=== PATIENT | male | born 1960 | race Caucasian/White ===

== ENCOUNTER 2020-01-03 10:42 | Outpatient (REF) | payer MEDICARE, MEDICAID, SELFPAY ==
[2020-01-03 11:30] LABS: Hematocrit 39.2 % (42-52); Hemoglobin 12.7 g/dl (14.0-18.0)
[2020-01-03 11:50] LABS: Estimated Average Glucose 160 mg/dL; Hemoglobin A1c % 7.2 %
[2020-01-03 11:51] LABS: Alanine Aminotransferase 13 U/L (0-40); Albumin Level 3.7 g/dL (3.5-5.0); Alkaline Phosphatase 110 U/L (39-117); Anion Gap 12 (12-20); Aspartate Amino Transferase 11 U/L (5-37); Bilirubin Total 0.6 mg/dL (0.0-1.0); Blood Urea Nitrogen 20 mg/dL (9-16); Calcium 9.2 mg/dL (8.4-10.2); Carbon Dioxide 27 mmol/L (22-29); Chloride 104 mmol/L (96-108); Estimated Glomerular Filt Rate > 60; Glucose Fasting 113 mg/dL (60-99); Potassium 5.2 mmol/l (3.3-5.1); Sodium 138 mmol/L (135-145)
== END 2020-01-03 10:43 | disposition home or self-care (01) ==
LOC: HO.LAB 10:42
PROVIDERS: PCP Internal Medicine; Visit Provider Internal Medicine Endocrinology, Diabetes & Metabolism
DX: E11.65 Type 2 diabetes mellitus with hyperglycemia (principal)
CPT/HCPCS: 36415; 80053; 83036; 85014; 85018

== ENCOUNTER → 2020-04-10 13:51 | Outpatient (BNVA) | payer MEDICARE, MEDICAID, SELFPAY | PROVIDERS: PCP Internal Medicine; Referring Provider Internal Medicine; Visit Provider Internal Medicine Endocrinology, Diabetes & Metabolism | DX: E11.65 Type 2 diabetes mellitus with hyperglycemia (principal); E11.42 Type 2 diabetes mellitus with diabetic polyneuropathy; E11.21 Type 2 diabetes mellitus with diabetic nephropathy; Z79.4 Long term (current) use of insulin; E78.5 Hyperlipidemia, unspecified; I10 Essential (primary) hypertension; E55.9 Vitamin D deficiency, unspecified | CPT/HCPCS: 82947; 99212 ==

== ENCOUNTER 2020-04-18 10:36 | Outpatient (REF) | payer MEDICARE, MEDICAID, SELFPAY ==
[2020-04-18 14:43] LABS: Alanine Aminotransferase 12 U/L (0-40); Albumin Level 3.6 g/dL (3.5-5.0); Alkaline Phosphatase 123 U/L (39-117); Anion Gap 17 (12-20); Aspartate Amino Transferase 12 U/L (5-37); Bilirubin Total 0.3 mg/dL (0.0-1.0); Blood Urea Nitrogen 18 mg/dL (9-16); Calcium 8.5 mg/dL (8.4-10.2); Carbon Dioxide 21 mmol/L (22-29); Chloride 105 mmol/L (96-108); Cholesterol 100 mg/dL; Estimated Glomerular Filt Rate > 60; Glucose Random 148 mg/dL (60-115); HDL Cholesterol 29 mg/dL; LDL Cholesterol Calculated 55 mg/dl; Potassium 4.7 mmol/l (3.3-5.1); Sodium 138 mmol/L (135-145); Total Protein 6.8 g/dL (6.5-8.0); Triglycerides 81 mg/dL
[2020-04-18 14:53] LABS: Vitamin B12 168 pg/mL (200-900)
[2020-04-18 15:06] LABS: Creatinine Urine 233.85 mg/dL; Microalbum/Creatinine Ratio Ur 11.1 ug/mg cr
[2020-04-19 07:57] LABS: LDL Cholesterol Direct 54 mg/dL (<100)
== END 2020-04-18 10:37 | disposition home or self-care (01) ==
LOC: HO.10HDL 10:36
PROVIDERS: Visit Provider Internal Medicine Endocrinology, Diabetes & Metabolism
DX: E11.65 Type 2 diabetes mellitus with hyperglycemia (principal); E11.42 Type 2 diabetes mellitus with diabetic polyneuropathy; E55.9 Vitamin D deficiency, unspecified; Z79.4 Long term (current) use of insulin; Z79.899 Other long term (current) drug therapy
CPT/HCPCS: 36415; 80053; 80061; 82043; 82607; 83721

== ENCOUNTER 2020-06-12 08:07 | Outpatient (REF) | payer MEDICARE, MEDICAID, SELFPAY ==
--- NOTE | 2020-06-12 09:31 | MHC.AU.ANO ---
Adult Audiological Evaluation Date of Visit: 06/12/20 Reason for Appointment: Patient's family has noticed the patient appears to have been gradually developing hearing difficulty over the past several years. Has hearing been tested previously?: No Hearing Handicap Inventory: HHIE SCORE: 26 Based on HHIE score, patient has: Severe perceived hearing handicap Ear History: Recent Ear Drainage: None Reported Recent Ear Pain: None Reported Recent Ear Infections: None Reported History of Ear Wax Buildup: None Reported Previous Ear Surgery: None Reported Ear used on the phone: Right Ear History of occupational noise exposure?: No History: No Medical History: Medical History: Developmental Disorder/Delay, Diabetes, High Blood Pressure, Seizure Disorder Otoscopy: Right Ear: Tympanic membrane appeared cloudy Left Ear: Tympanic membrane appeared cloudy Tympanometry: Tympanometry performed due to: To assess integrity of the middle ear system Right Ear: Non-compliant Middle Ear System (Type B) Left Ear: Non-compliant Middle Ear System (Type B) Otoacoustic Emissions Results: Did not test due to extent of middle ear dysfunction Hearing Evaluation: Transducer(s) Used: Insert Earphones Method: Conventional Audiometry Stimuli Used: Pure Tones Right Ear: Description of Hearing: Moderate/moderately-severe sloping to severe mixed hearing loss (mostly conductive) Left Ear: Description of Hearing: Profound rising to moderate and sloping to severe mixed hearing loss (mostly conductive) Speech Recognition Threshold (SRT): Method Used: Recorded Lists Stimuli Used: Spondee Words Right Ear: 55 dBHL Left Ear: 65 dBHL Word Discrimination: Method: Recorded Lists Word Lists Used: NU-6 Right Ear: 92% at 90 dBHL Left Ear: 96% at 95 dBHL Interpretation of Results: Patient presents with flat tympanograms (non-compliant middle ear systems) and mixed hearing loss that is mostly conductive in nature, and worse in the left ear. Given his current level of hearing loss, patient likely has significant difficulty hearing and understanding speech at average conversational volumes. Recommendations: Referral to Ear, Nose, and Throat (ENT) is highly recommended to address significant asymmetrical mixed hearing loss and non-compliant middle ear systems. If the hearing loss is unable to be medically managed, a medical clearance for hearing aids would be recommended. To help support patient's hearing in the meantime: -Gain patient's full attention before talking -Talk from a close distance, and [id number] -Minimize background noise in the area when possible -Speak clearly and distinctly -A personal amplifier, such as a Pocket Talker, may help the patient get by until he is able to see ENT. These devices can often be found online (i.e. [employer] or in electronics stores. They typically consist of a pair of headphones the patient wears and a microphone that others can speak into. Personal amplifiers are not a substitute for hearing aids, but may help bridge the gap until the hearing loss can be medically addressed. Diagnosis: Primary Diagnosis: H90.6 Mixed Hearing Loss, Bilateral Services Performed: Comprehensive Audiological Evaluation (CPT 79982), Tympanometry (CPT 55027) Signature: Provider: Lynne Garza, CCC-A
== END 2020-06-12 08:08 | disposition home or self-care (01) ==
LOC: HO.SH 08:07
PROVIDERS: Visit Provider Internal Medicine
DX: H90.6 Mixed conductive and sensorineural hearing loss, bilateral (principal)
CPT/HCPCS: 92557; 92567

== ENCOUNTER → 2020-07-03 14:15 | Outpatient (BNVA) | payer MEDICARE, MEDICAID, SELFPAY | PROVIDERS: PCP Internal Medicine; Visit Provider Internal Medicine Endocrinology, Diabetes & Metabolism | DX: E11.65 Type 2 diabetes mellitus with hyperglycemia (principal); E11.42 Type 2 diabetes mellitus with diabetic polyneuropathy; E11.21 Type 2 diabetes mellitus with diabetic nephropathy; Z79.4 Long term (current) use of insulin; E78.5 Hyperlipidemia, unspecified; I10 Essential (primary) hypertension; E55.9 Vitamin D deficiency, unspecified; E53.8 Deficiency of other specified B group vitamins | CPT/HCPCS: 82947; 99212 ==

== ENCOUNTER 2021-01-23 07:50 | Outpatient (REF) | payer MEDICARE, MEDICAID, SELFPAY ==
--- NOTE | 2021-01-23 12:21 | MHC.AU.ANO ---
Adult Audiological Evaluation Date of Visit: 01/23/21 Wool Buyer Used: Not Applicable Reason for Appointment: Audiologic re-evaluation. Hoang was tested at this office 06/12/2020 and found to have an asymmetric moderate to profound mixed hearing loss, with left ear being 40 dB poorer than the right at 250-1500 Hz, and bilateral middle ear dysfunction. Medical consultation with an Firmware Software Verification Engineer (ENT) was recommended. Hoang's sister, Delia, reports they went to the ENT in October 2020 and had a very frustrating appointment. A CT scan discussed to determine if a possible reason for the asymmetry could be identified; however, the ENT office never scheduled the CT scan and did not follow-up with Hoang with no medical clearance for hearing aids being provided. Hoang and his sister are very interested in pursuing hearing aids to facilitate his communication. An audiologic re-evaluation is needed for insurance coverage of amplification since the previous hearing test is over 6 months old. Medical History: Medical History: Developmental Disorder/Delay, Diabetes, High Blood Pressure, Seizure Disorder Medication List: List not available for review today. Otoscopy: Right Ear: Dull tympanic membrane Left Ear: Dull tympanic membrane Tympanometry: Tympanometry performed due to: History of middle ear dysfunction Right Ear: Non-compliant Middle Ear System (Type B) Left Ear: Non-compliant Middle Ear System (Type B) Otoacoustic Emissions Not performed at today's visit. Hearing Evaluation: Transducer(s) Used: Insert Earphones Bone Conduction Method: Conventional Audiometry Stimuli Used: Pure Tones Right Ear: Description of Hearing: Profound mixed hearing loss at 250-1500 Hz, rising to moderate mixed loss at 1897-3722 Hz, dropping to a severe loss at 8000 Hz. Left Ear: Description of Hearing: Moderate to moderately-severe mixed hearing loss 250-6000 Hz, sloping to a severe loss at 8000 Hz. Speech Recognition Threshold (SRT): Method Used: Not performed at today's visit. Word Discrimination: Method: Recorded Lists Word Lists Used: NU-6 W- Right Ear: 92% at 90 dB HL Left Ear: 92% at 95 dB HL Most Comfortable Level (MCL): Right Ear: 90 dB HL Left Ear: 95 dB HL Comparison: Compared to the most recent evaluation: Hearing is stable. Recommendations: - As Christopher and his sister's experience with the ENT was very frustrating, medical clearance will be sent to his Primary Care Physician, Dr. Banerjee. Due to the asymmetric and mixed nature of the hearing loss, it is advised to discuss with Dr. Banerjee if further imaging study is warranted to determine a possible cause of the hearing loss. - Trial with binaural amplification is recommended. - Medical clearance from a physician is required before fitting. - Hearing Aid Fitting will be scheduled when all materials arrive. - Audiological re-evaluation in one year. Will send a reminder card. Diagnosis: Primary Diagnosis: H90.6 Mixed Hearing Loss, Bilateral Secondary Diagnosis: H69.93 Unspecified Eustachian Tube Dysfunction, Bilateral Services Performed: Comprehensive Audiological Evaluation (CPT 46176) Tympanometry (CPT 59645) Signature: Provider: Lynne Burks, CCC-A
--- NOTE | 2021-01-23 12:43 | MHC.AU.MED ---
Medical Clearance for Hearing Instrumentation Date: 01/23/21 Patient Name: Hoang Escobar Date of : 1960 Primary Care Provider: Referring Provider: Devan Banerjee MD We have seen your patient on 01/23/21 and have determined that they are a candidate for amplification (See accompanying report). Specifically, they would benefit from: Hearing aid use in both ears There is a statute that addresses Medical Evaluation Requirements prior to fitting a patient with a hearing aid. According to [place] statute 265 CMR:6.03(1), (a) General. Except as provided in 265 CMR 6.03(1)(b), a life skills trainer shall not sell a hearing aid unless the prospective user has presented to the life skills trainer a written statement signed by a licensed physician that states that the patient's hearing loss has been medically evaluated and the patient may be considered a candidate for a hearing aid. The medical evaluation must have taken place within the preceding six months. Please note: Due to the [place] Statute referenced above, we cannot accept a signature other than that of a licensed physician. ACETYLENE OPERATOR and PA signatures cannot be accepted. I am in agreement with the above recommendation. There is no medical contraindication for hearing instrumentation. Physician Signature Date Physician Name (Printed)
--- NOTE | 2021-01-23 12:52 | MHC.AU.HAS ---
Hearing Aid Evaluation Date of Visit: 01/23/21 Historical Information: Description of Hearing: Asymmetric moderate to profound low frequency mixed hearing loss with the left ear being poorer at 250-1500 Hz. Current personal amplification information, if applicable: NONE Summary: Due to the significant degree of hearing loss and middle ear dysfunction, binaural hearing aids are advised to facilitate communication. Rechargeable hearing aids are recommended to help Christopher with ease of use and care of the hearing aids. Hearing Aid Prescription: Based on the individual?s shared listening needs, communication environments, dexterity, desire for connectivity, and personal preferences, the following prescription for amplification has been made: Right ear: Steel Plate Printer: [employer] Model: Evolve AI 1600 BTE-R Battery Size: Rechargeable Color: Slate Tubin Thick Type of Mold: Ron Canal Lock Left ear: Steel Plate Printer: [employer] Model: Evolve AI 1600 BTE-R Battery Size: Rechargeable Color: Slate Tubin Thick Type of Mold: Ron Canal Lock Plan of Care: Patient wishes to purchase hearing aids as prescribed Action Taken/Action Needed: Earmold Impressions Taken Medical Clearance to be requested from PCP/ENT Hearing Instrument Fitting to be scheduled when materials arrive Primary Diagnosis: H90.6 Mixed Hearing Loss, Bilateral Secondary Diagnosis: H69.93 Unspecified Eustachian Tube Dysfunction, Bilateral Signature: Provider: Lynne Burks, [facility]
--- NOTE | 2021-04-25 10:02 | MHC.AU.MED ---
Medical Clearance for Hearing Instrumentation Date: 04/25/21 Patient Name: Hoang Escobar Date of : 1960 Primary Care Provider: Referring Provider: Devan Banerjee MD We have seen your patient on 01/23/2021 and have determined that they are a candidate for amplification (See accompanying report). Specifically, they would benefit from: Hearing aid use in both ears There is a statute that addresses Medical Evaluation Requirements prior to fitting a patient with a hearing aid. According to [place] statute 265 CMR:6.03(1), (a) General. Except as provided in 265 CMR 6.03(1)(b), a hearing therapist shall not sell a hearing aid unless the prospective user has presented to the hearing therapist a written statement signed by a licensed physician that states that the patient's hearing loss has been medically evaluated and the patient may be considered a candidate for a hearing aid. The medical evaluation must have taken place within the preceding six months. Please note: Due to the [place] Statute referenced above, we cannot accept a signature other than that of a licensed physician. BAND SCROLL SAW OPERATOR and PA signatures cannot be accepted. I am in agreement with the above recommendation. There is no medical contraindication for hearing instrumentation. Physician Signature Date Physician Name (Printed)
== END 2021-01-23 07:51 | disposition home or self-care (01) ==
LOC: HO.SH 07:50
PROVIDERS: Visit Provider Internal Medicine
DX: Z46.1 Encounter for fitting and adjustment of hearing aid (principal); H90.6 Mixed conductive and sensorineural hearing loss, bilateral
CPT/HCPCS: 92557; 92567; 92591; V5275

== ENCOUNTER 2021-02-09 09:54 | Outpatient (REF) | payer MEDICARE, MEDICAID, SELFPAY | END 2021-02-09 09:55 | disposition home or self-care (01) | LOC: HO.HAP 09:54 | PROVIDERS: Visit Provider Internal Medicine | DX: Z46.1 Encounter for fitting and adjustment of hearing aid (principal); H90.6 Mixed conductive and sensorineural hearing loss, bilateral; H69.93 Unspecified Eustachian tube disorder, bilateral | CPT/HCPCS: V5011; V5020; V5160; V5261; V5264 ==

== ENCOUNTER 2021-02-13 09:29 | Outpatient (REF) | payer MEDICARE, MEDICAID, SELFPAY | END 2021-02-13 09:30 | disposition home or self-care (01) | LOC: HO.HAP 09:29 | PROVIDERS: Visit Provider Internal Medicine | DX: Z13.89 Encounter for screening for other disorder (principal) ==

== ENCOUNTER 2021-02-19 10:00 | Outpatient (REF) | payer MEDICARE, MEDICAID, SELFPAY | END 2021-02-19 10:01 | disposition home or self-care (01) | LOC: HO.HAP 10:00 | PROVIDERS: Visit Provider Internal Medicine | DX: Z13.89 Encounter for screening for other disorder (principal) ==

== ENCOUNTER 2021-02-23 11:37 | Outpatient (REF) | payer MEDICARE, MEDICAID, SELFPAY | END 2021-02-23 11:38 | disposition home or self-care (01) | LOC: HO.HAP 11:37 | PROVIDERS: Visit Provider Internal Medicine | DX: Z13.89 Encounter for screening for other disorder (principal) ==

== ENCOUNTER 2021-04-10 07:43 | Outpatient (REF) | payer MEDICARE, MEDICAID, SELFPAY ==
[2021-04-10 10:36] LABS: Cholesterol 102 mg/dL; Creatinine Urine 256.86 mg/dL; HDL Cholesterol 30 mg/dL; LDL Cholesterol Calculated 58 mg/dl; Triglycerides 71 mg/dL
[2021-04-10 10:38] LABS: Alanine Aminotransferase 16 U/L (0-40); Albumin Level 3.6 g/dL (3.5-5.0); Alkaline Phosphatase 126 U/L (39-117); Anion Gap 12 (12-20); Aspartate Amino Transferase 11 U/L (5-37); Bilirubin Total 0.6 mg/dL (0.0-1.0); Blood Urea Nitrogen 20 mg/dL (9-16); Calcium 9.1 mg/dL (8.4-10.2); Carbon Dioxide 28 mmol/L (22-29); Chloride 106 mmol/L (96-108); Estimated Glomerular Filt Rate > 60; Glucose Fasting 140 mg/dL (60-99); Potassium 5.3 mmol/L (3.3-5.1); Sodium 141 mmol/L (135-145); Total Protein 6.7 g/dL (6.5-8.0)
[2021-04-10 10:58] LABS: Vitamin D 25-OH Total 40.2 ng/mL (>30)
[2021-04-10 10:59] LABS: Prostate Specific Antigen 0.52 ng/mL (<0.05-4.0); Reflex LDLD? No
[2021-04-10 11:04] LABS: Vitamin B12 578 pg/mL (200-900)
== END 2021-04-10 07:44 | disposition home or self-care (01) ==
LOC: HO.10HDL 07:43
PROVIDERS: Internal Medicine Endocrinology, Diabetes & Metabolism; Absent Provider Nurse Practitioner Family; Visit Provider Nurse Practitioner Gerontology
DX: Z12.5 Encounter for screening for malignant neoplasm of prostate (principal); E11.65 Type 2 diabetes mellitus with hyperglycemia; E55.9 Vitamin D deficiency, unspecified; E53.8 Deficiency of other specified B group vitamins; E11.42 Type 2 diabetes mellitus with diabetic polyneuropathy; E11.21 Type 2 diabetes mellitus with diabetic nephropathy; I10 Essential (primary) hypertension; E66.01 Morbid (severe) obesity due to excess calories; Z68.42 Body mass index [BMI] 45.0-49.9, adult; Z79.4 Long term (current) use of insulin
CPT/HCPCS: 36415; 80053; 80061; 82043; 82306; 82607; 82947; 83036; 84153; 99212

== ENCOUNTER 2021-04-11 10:06 | Outpatient (REF) | payer MEDICARE, MEDICAID, SELFPAY ==
[2021-04-11 14:21] LABS: Anion Gap 13 (12-20); Blood Urea Nitrogen 22 mg/dL (9-16); Calcium 9.1 mg/dL (8.4-10.2); Carbon Dioxide 26 mmol/L (22-29); Chloride 106 mmol/L (96-108); Estimated Glomerular Filt Rate > 60; Glucose Random 142 mg/dL (60-115); Potassium 5.2 mmol/L (3.3-5.1); Sodium 140 mmol/L (135-145)
== END 2021-04-11 10:07 | disposition home or self-care (01) ==
LOC: HO.10HDL 10:06
PROVIDERS: Visit Provider Nurse Practitioner Gerontology
DX: E11.21 Type 2 diabetes mellitus with diabetic nephropathy (principal)
CPT/HCPCS: 36415; 80048

== ENCOUNTER → 2021-04-17 13:44 | Outpatient (BNVA) | payer MEDICARE, MEDICAID, SELFPAY | PROVIDERS: PCP Internal Medicine; Visit Provider Surgery Vascular Surgery | DX: I83.12 Varicose veins of left lower extremity with inflammation (principal) | CPT/HCPCS: 99202 ==

== ENCOUNTER 2021-04-26 10:22 | Outpatient (REF) | payer MEDICARE, MEDICAID, SELFPAY ==
--- NOTE | ~2021-04-26 | US_ITS ---
EXAMINATION: US LOWER EXTREMITY VENOUS (REFLUX EXAM), BILATERAL CLINICAL INDICATION: This is a 60-year-old male with venous insufficiency and varicose veins. COMPARISON: None. TECHNIQUE: Color flow triplex imaging and compression Doppler was performed to evaluate both the deep and the superficial systems bilaterally. To evaluate the superficial system, the examination was performed in the upright position. Color-flow Doppler ultrasound and compression ultrasound were utilized. In addition, maneuvers were utilized to demonstrate reflux. FINDINGS: 1. DEEP VENOUS ULTRASOUND OF THE RIGHT LOWER EXTREMITY: Common Femoral Vein: Compressible, normal respiratory variation and augmented flow. Femoral vein: Compressible, normal color flow and augmentation. Popliteal Vein: Compressible, normal augmentation. Deep Reflux: There is no evidence of reflux in the deep system in either the common femoral vein or the popliteal vein. There is no evidence of a Degroot's cyst. 2. SUPERFICIAL ULTRASOUND WITH DOPPLER OF RIGHT LOWER EXTREMITY: GREAT SAPHENOUS VEIN: Saphenofemoral Junction: 0.8 cm Mid Thigh: 0.6 cm Above Knee: 0.6 cm Below Knee: 0.3 cm Mid Calf: 0.2 cm Ankle: 0.5 cm GSV REFLUX: No evidence of reflux. DUPLICATED GREAT SAPHENOUS VEIN: There is a 0.5 cm duplicated medial great saphenous vein without reflux. SMALL SAPHENOUS VEIN: Proximal: 0.5 cm Distal: 0.3 cm SSV REFLUX: No evidence of reflux. VEIN OF GIACOMINI: None Imaged. PERFORATORS: There is a 0.3 cm mid calf pelletising extruder operator 300 ms of reflux. VARICOSITIES: There are 0.4 cm medial thigh varicose veins without reflux. 3. DEEP VENOUS ULTRASOUND OF THE LEFT LOWER EXTREMITY: Common Femoral Vein: Compressible, normal respiratory variation and augmented flow. Femoral Vein: Compressible, normal color flow and augmentation. Popliteal Vein: Compressible, normal augmentation. Deep Reflux: There is no evidence of reflux in the deep system in either the common femoral vein or the popliteal vein. There is no evidence of a Degroot's cyst. 4. SUPERFICIAL ULTRASOUND WITH DOPPLER OF LEFT LOWER EXTREMITY: GREAT SAPHENOUS VEIN: Saphenofemoral Junction: 0.9 cm. The reflux time is 620 ms. Mid Thigh: 0.4 cm. There is no reflux. Above Knee: 0.3 cm. There is no reflux. Below Knee: 0.2 cm. The reflux time is 1948 ms. Mid Calf: 0.3 cm. There is no reflux. Ankle: 0.3 cm. There is no reflux. GSV REFLUX: There is reflux at the saphenofemoral junction. DUPLICATED GREAT SAPHENOUS VEIN: None SMALL SAPHENOUS VEIN: Proximal: 0.5 cm Distal: 0.3 cm SSV REFLUX: No evidence of reflux. VEIN OF GIACOMINI: None Imaged. PERFORATORS: There is a 0.4 cm distal calf pelletising extruder operator without reflux. VARICOSITIES: There is a 0.4 cm varicose veins in the proximal thigh without reflux. US/US venous duplex LE BI IMPRESSION: 1. There is a patent right great saphenous vein without evidence of reflux. 2. There is a patent right small saphenous vein without evidence of reflux. 3. There are thigh varicose veins measure 0.4 cm without reflux. 4. There is a patent left great saphenous vein with reflux at the saphenofemoral junction. 5. There is a patent left small saphenous vein without reflux. 6. There are patent varicose veins in the proximal thigh without reflux.
== END 2021-04-26 10:23 | disposition home or self-care (01) ==
LOC: HO.US 10:22
PROVIDERS: PCP Internal Medicine; Visit Provider Surgery Vascular Surgery
DX: I83.12 Varicose veins of left lower extremity with inflammation (principal)
CPT/HCPCS: 93970

== ENCOUNTER → 2021-05-01 14:26 | Outpatient (BNVA) | payer MEDICARE, MEDICAID, SELFPAY | PROVIDERS: PCP Internal Medicine; Visit Provider Surgery Vascular Surgery | DX: I83.12 Varicose veins of left lower extremity with inflammation (principal) | CPT/HCPCS: 99212 ==

== ENCOUNTER 2021-06-05 10:53 | Outpatient (REF) | payer SELFPAY | END 2021-06-05 10:54 | disposition home or self-care (01) | LOC: HO.HAP 10:53 | PROVIDERS: Visit Provider Internal Medicine | DX: Z13.89 Encounter for screening for other disorder (principal) ==

== ENCOUNTER 2021-06-15 10:20 | Outpatient (REF) | payer MEDICARE, MEDICAID, SELFPAY ==
--- NOTE | 2021-06-15 11:41 | MHC.AU.HFU ---
Hearing Instrument Follow-Up- Binaural Date of Visit: 06/15/21 Right Ear: Animal Keeper: Ron Model: Evolve AI 1600 BTE-R Serial Number: [id number] Repair Warranty: 04/25/2024 Loss and Damage Warranty: 04/25/2024 Battery Size: Rechargeable Color: Slate Tubing: Tube Lock Type of Mold: Ron Canal Lock Type of Wax Guard: None Dispensed By: [facility] Date of Fittin02/09/2021 Left Ear: Animal Keeper: Ron Model: Evolve AI 1600 BTE-R Serial Number: [id number] Repair Warranty: 04/25/2024 Loss and Damage Warranty: 04/25/2024 USED 06/07/2021 Battery Size: Rechargeable Color: Slate Tubing: Tube Lock Type of Mold: Ron Canal Lock Type of Wax Guard: None Dispensed By: [facility] Date of Fittin02/09/2021 Follow-Up Summary: Fir the L&D left replacement aid and earmold. Retubed the right earmold with tube lock. Performed firmware update for the right aid, left replacement aid already had the update. Programmed both aids to last settings. Recommendations:Hearing instrument follow-up or maintenance as needed. Please contact our clinic with any questions or concerns. Diagnosis Code(s): Primary Diagnosis: H90.6 Mixed Hearing Loss, Bilateral Secondary Diagnosis: H69.93 Unspecified Eustachian Tube Dysfunction, Bilateral Signature:Provider: Lynne Burks, [facility]
== END 2021-06-15 10:21 | disposition home or self-care (01) ==
LOC: HO.HAP 10:20
PROVIDERS: Visit Provider Internal Medicine
DX: Z13.89 Encounter for screening for other disorder (principal)

== ENCOUNTER → 2021-07-05 09:47 | Outpatient (BNVA) | payer MEDICARE, MEDICAID, SELFPAY | PROVIDERS: PCP Internal Medicine; Visit Provider Registered Nurse Diabetes Educator | DX: E11.21 Type 2 diabetes mellitus with diabetic nephropathy (principal); E11.42 Type 2 diabetes mellitus with diabetic polyneuropathy; Z79.4 Long term (current) use of insulin | CPT/HCPCS: 95250 ==

== ENCOUNTER 2021-07-16 10:04 | Outpatient (REF) | payer MEDICARE, MEDICAID, SELFPAY ==
[2021-07-16 11:34] LABS: Alanine Aminotransferase 23 U/L (0-40); Albumin Level 3.5 g/dL (3.5-5.0); Alkaline Phosphatase 128 U/L (39-117); Anion Gap 12 (12-20); Aspartate Amino Transferase 18 U/L (5-37); Bilirubin Total 0.5 mg/dL (0.0-1.0); Blood Urea Nitrogen 24 mg/dL (9-16); Calcium 9.3 mg/dL (8.4-10.2); Carbon Dioxide 27 mmol/L (22-29); Chloride 106 mmol/L (96-108); Estimated Glomerular Filt Rate > 60; Glucose Fasting 139 mg/dL (60-99); Potassium 4.8 mmol/L (3.3-5.1); Sodium 140 mmol/L (135-145); Total Protein 6.4 g/dL (6.5-8.0)
== END 2021-07-16 10:05 | disposition home or self-care (01) ==
LOC: HO.10HDL 10:04
PROVIDERS: Visit Provider Nurse Practitioner Gerontology
DX: E11.21 Type 2 diabetes mellitus with diabetic nephropathy (principal)
CPT/HCPCS: 36415; 80053

== ENCOUNTER → 2021-07-19 09:24 | Outpatient (BNVA) | payer MEDICARE, MEDICAID, SELFPAY | PROVIDERS: PCP Internal Medicine; Visit Provider Nurse Practitioner Gerontology | DX: E11.65 Type 2 diabetes mellitus with hyperglycemia (principal); E11.42 Type 2 diabetes mellitus with diabetic polyneuropathy; E11.21 Type 2 diabetes mellitus with diabetic nephropathy; E78.5 Hyperlipidemia, unspecified; E55.9 Vitamin D deficiency, unspecified; E53.8 Deficiency of other specified B group vitamins; E66.01 Morbid (severe) obesity due to excess calories; I10 Essential (primary) hypertension; Z79.4 Long term (current) use of insulin; Z68.42 Body mass index [BMI] 45.0-49.9, adult | CPT/HCPCS: 82947; 83036; 99212 ==

== ENCOUNTER → 2021-09-19 08:01 | Outpatient (BNVA) | payer MEDICARE, MEDICAID, SELFPAY | PROVIDERS: PCP Internal Medicine; Visit Provider Nurse Practitioner Gerontology | DX: E11.21 Type 2 diabetes mellitus with diabetic nephropathy (principal); E11.42 Type 2 diabetes mellitus with diabetic polyneuropathy; E11.65 Type 2 diabetes mellitus with hyperglycemia; E78.5 Hyperlipidemia, unspecified; E55.9 Vitamin D deficiency, unspecified; E53.8 Deficiency of other specified B group vitamins; E66.01 Morbid (severe) obesity due to excess calories; I10 Essential (primary) hypertension; Z68.42 Body mass index [BMI] 45.0-49.9, adult; Z79.4 Long term (current) use of insulin | CPT/HCPCS: 82947; Q3014 ==

== ENCOUNTER → 2021-10-18 12:49 | Outpatient (BNVA) | payer MEDICARE, MEDICAID, SELFPAY | PROVIDERS: PCP Internal Medicine; Visit Provider Registered Nurse Diabetes Educator | DX: E11.21 Type 2 diabetes mellitus with diabetic nephropathy (principal) | CPT/HCPCS: 99211 ==

== ENCOUNTER → 2021-11-01 13:23 | Outpatient (BNVA) | payer MEDICARE, MEDICAID, SELFPAY | PROVIDERS: PCP Internal Medicine; Visit Provider Registered Nurse Diabetes Educator | DX: E11.21 Type 2 diabetes mellitus with diabetic nephropathy (principal) | CPT/HCPCS: 99211 ==

== ENCOUNTER 2021-11-06 13:37 | Outpatient (REF) | payer MEDICARE, MEDICAID, SELFPAY | END 2021-11-06 13:38 | disposition home or self-care (01) | LOC: HO.HAP 13:37 | PROVIDERS: Visit Provider Internal Medicine | DX: Z46.1 Encounter for fitting and adjustment of hearing aid (principal); H90.3 Sensorineural hearing loss, bilateral | CPT/HCPCS: 92593; 92595; V5011 ==

== ENCOUNTER 2021-11-07 13:00 | Outpatient (REF) | payer MEDICARE, MEDICAID, SELFPAY | END 2021-11-07 13:01 | disposition home or self-care (01) | LOC: HO.HAP 13:00 | PROVIDERS: Visit Provider Internal Medicine | DX: Z13.89 Encounter for screening for other disorder (principal) ==

== ENCOUNTER → 2021-11-15 13:23 | Outpatient (BNVA) | payer MEDICARE, MEDICAID, SELFPAY | PROVIDERS: PCP Internal Medicine; Visit Provider Registered Nurse Diabetes Educator | DX: E11.65 Type 2 diabetes mellitus with hyperglycemia (principal); E11.42 Type 2 diabetes mellitus with diabetic polyneuropathy; E11.21 Type 2 diabetes mellitus with diabetic nephropathy; E66.09 Other obesity due to excess calories; E53.8 Deficiency of other specified B group vitamins; E55.9 Vitamin D deficiency, unspecified; Z79.4 Long term (current) use of insulin | CPT/HCPCS: 99211 ==

== ENCOUNTER 2021-11-21 14:30 | Outpatient (REF) | payer MEDICARE, MEDICAID, SELFPAY | END 2021-11-21 14:31 | disposition home or self-care (01) | LOC: HO.HAP 14:30 | PROVIDERS: Visit Provider Internal Medicine | DX: Z46.1 Encounter for fitting and adjustment of hearing aid (principal); H90.3 Sensorineural hearing loss, bilateral | CPT/HCPCS: V5264 ==

== ENCOUNTER 2021-12-18 11:31 | Outpatient (REF) | payer MEDICARE, MEDICAID, SELFPAY ==
[2021-12-18 14:04] LABS: Cholesterol 86 mg/dL; HDL Cholesterol 23 mg/dL; LDL Cholesterol Calculated 49 mg/dl; Triglycerides 73 mg/dL
[2021-12-18 14:24] LABS: Prostate Specific Antigen 0.53 ng/mL (<0.05-4.0)
[2021-12-18 14:56] LABS: Creatinine Urine 180.45 mg/dL; Microalbum/Creatinine Ratio Ur 3.3 ug/mg cr
== END 2021-12-18 11:32 | disposition home or self-care (01) ==
LOC: HO.LAB 11:31
PROVIDERS: Nurse Practitioner Family; PCP Internal Medicine; Visit Provider Internal Medicine Endocrinology, Diabetes & Metabolism
DX: Z12.5 Encounter for screening for malignant neoplasm of prostate (principal); E11.65 Type 2 diabetes mellitus with hyperglycemia
CPT/HCPCS: 36415; 80061; 82043; 84153

== ENCOUNTER → 2021-12-20 13:51 | Outpatient (BNVA) | payer MEDICARE, MEDICAID, SELFPAY | PROVIDERS: PCP Internal Medicine; Visit Provider Internal Medicine Endocrinology, Diabetes & Metabolism | DX: E11.65 Type 2 diabetes mellitus with hyperglycemia (principal) | CPT/HCPCS: 82947; 99212 ==

== ENCOUNTER 2022-04-30 14:56 | Outpatient (REF) | payer MEDICARE, MEDICAID, SELFPAY | END 2022-04-30 14:57 | disposition home or self-care (01) | LOC: HO.SH 14:56 | PROVIDERS: Visit Provider Internal Medicine | DX: H90.6 Mixed conductive and sensorineural hearing loss, bilateral (principal); H69.93 Unspecified Eustachian tube disorder, bilateral | CPT/HCPCS: 92557; 92567 ==

== ENCOUNTER 2022-07-01 10:21 | Outpatient (REF) | payer MEDICARE, MEDICAID, SELFPAY ==
[2022-07-01 13:42] LABS: MANUAL DIFF FLAG NO
[2022-07-01 13:48] LABS: Basophils Percent Auto 0.3 % (0-2); Eosinophils Absolute Auto 0.1 X10*3/uL (0.0-0.4); Eosinophils Percent Auto 1.1 % (0-4); Hematocrit 37.3 % (42.0-52.0); Hemoglobin 12.1 g/dl (14.0-18.0); Imm Gran Abs Auto 0.03 X10*3/uL (0.00-0.03); Imm Gran Pct Auto 0.3 % (0.0-0.4); Lymphocytes Absolute Auto 3.6 X10*3/uL (1.2-4.9); Lymphocytes Percent Auto 39.3 % (20-40); Mean Corpuscular HGB Conc 32.4 g/dl (31.0-36.0); Mean Corpuscular Hemoglobin 28.7 pg (27.0-33.0); Mean Corpuscular Volume 88.6 fL (80.0-98.0); Mean Platelet Volume 11.7 fL (9.4-12.4); Monocytes Absolute Auto 0.5 X10*3/uL (0.1-1.2); Monocytes Percent Auto 5.6 % (2-11); Neutrophils Absolute Auto 4.9 x10*3/uL (2.0-8.3); Neutrophils Percent Auto 53.4 % (45-73); Platelet Count 257 X10*3/uL (160-400); Red Blood Count 4.21 X10*6/uL (4.60-5.80); Red Cell Distribution Width 14.8 % (11.0-16.0); White Blood Count 9.2 X10*3/uL (4.8-10.8)
[2022-07-01 14:00] LABS: Estimated Average Glucose 134 mg/dL; Hemoglobin A1C 149.3713 umol/L; Hemoglobin A1c % 6.3 %
[2022-07-01 14:12] LABS: Alanine Aminotransferase 19 U/L (0-40); Albumin Level 3.4 g/dL (3.5-5.0); Alkaline Phosphatase 114 U/L (39-117); Anion Gap 13 (12-20); Aspartate Amino Transferase 14 U/L (5-37); Bilirubin Total 0.5 mg/dL (0.0-1.0); Blood Urea Nitrogen 24 mg/dL (9-16); Carbon Dioxide 27 mmol/L (22-29); Chloride 105 mmol/L (96-108); Cholesterol 103 mg/dL; Estimated Glomerular Filt Rate > 60; Glucose Fasting 115 mg/dL (60-99); HDL Cholesterol 29 mg/dL; LDL Cholesterol Calculated 60 mg/dl; Potassium 4.7 mmol/L (3.3-5.1); Sodium 140 mmol/L (135-145); Total Protein 6.3 g/dL (6.5-8.0); Triglycerides 72 mg/dL
[2022-07-01 14:18] LABS: Microalbum/Creatinine Ratio Ur 9.6 ug/mg cr
[2022-07-01 14:29] LABS: Thyroid Stimulating Hormone 1.43 uIU/mL (0.32-4.0)
== END 2022-07-01 10:22 | disposition home or self-care (01) ==
LOC: HO.10HDL 10:21
PROVIDERS: Visit Provider Internal Medicine
DX: Z13.0 Encounter for screening for diseases of the blood and blood-forming organs and certain disorders involving the immune mechanism (principal); E11.69 Type 2 diabetes mellitus with other specified complication; E66.01 Morbid (severe) obesity due to excess calories; E78.5 Hyperlipidemia, unspecified; I10 Essential (primary) hypertension; E03.9 Hypothyroidism, unspecified
CPT/HCPCS: 36415; 80053; 80061; 82043; 83036; 84443; 85025

== ENCOUNTER → 2022-07-05 13:52 | Outpatient (BNVA) | payer MEDICARE, MEDICAID, SELFPAY | PROVIDERS: PCP Internal Medicine; Visit Provider Internal Medicine Endocrinology, Diabetes & Metabolism | DX: E11.65 Type 2 diabetes mellitus with hyperglycemia (principal); E11.42 Type 2 diabetes mellitus with diabetic polyneuropathy; E11.21 Type 2 diabetes mellitus with diabetic nephropathy; I10 Essential (primary) hypertension; E55.9 Vitamin D deficiency, unspecified; E66.01 Morbid (severe) obesity due to excess calories; Z68.41 Body mass index [BMI] 40.0-44.9, adult; Z79.4 Long term (current) use of insulin | CPT/HCPCS: 82947; 99212 ==

== ENCOUNTER 2022-12-27 09:59 | Outpatient (REF) | payer MEDICARE, MEDICAID, SELFPAY | END 2022-12-27 10:00 | disposition home or self-care (01) | LOC: HO.HMGCLDS 09:59 | PROVIDERS: PCP Internal Medicine; Visit Provider Internal Medicine Endocrinology, Diabetes & Metabolism | DX: E11.65 Type 2 diabetes mellitus with hyperglycemia (principal) | CPT/HCPCS: 36415; 80061 ==

== ENCOUNTER 2022-12-31 13:47 | Outpatient (AMB) | payer MEDICARE, MEDICAID, SELFPAY ==
[2022-12-31 13:51] VITALS: BP 110/62; PULSE 96; BMI 42.6
--- NOTE | 2022-12-31 13:51 | MHC.OFFVIS ---
Intake Vital Signs 12/31/22 13:51 Height 5 ft 10 in Weight 296 lb 11.875 oz BMI 42.6 BP 110/62 Blood Pressure Location Lt brachial Position Sitting Pulse 96 Pulse Source Pulse Oximeter Intake Visit Reasons: f/u Type 2 DM, voicemail Intake Note: Patient present today to follow up on Type 2 Diabetes Mellitus. Patient receives DME supplies through: [facility] Last Diabetic Eye exam: 08/20/22 [facility] Last Podiatry Visit: 04/16/22 [facility] Random Glucose: 125mg/dl HgA1C: 6.8% Demand Inspector Required: No Accompanied by: Sister Allergies No Known Allergies Allergy (Verified 12/31/22 14:03) HPI HPI Comments History of Present Illness Details Patient is a 62-year-old male with DM type 2 diagnosed in his 20s who presents for management of diabetes. Past medical history: Hypertension, hyperlipidemia Developmental delay, vitamin-D deficiency, morbid obesity. He lives with sister, Delia. Micro and macrovascular complications: Nephropathy, neuropathy Peripheral vascular disease with amputations on a 2nd and 3rd right toes Diabetes medications: Tresiba 10 units . Novolog 6-8 units ac PRN Metformin 1000 mg 1 tabs twice a day, Victoza 1.8 mg daily Blood glucose monitoring: [employer] download shows he is using CGMS 70% of the time average glucose is 114 with variability of 26.0%. 95% in target range with 5% hyperglycemia and 4 % hypoglycemia Hypoglycemia: None Exercise: walks down long driveway. Sometimes goes walking dogs. Admitting Clerk - CDE education: in past Efficiency Engineer: goes to hotel maintenance technician regularly Ophthalmology evaluation: 05/2022 Laboratory Tests 04/10/21 07/16/21 09:12 10:15 Creatinine 0.95 Estimated GFR > 60 Hgb A1c (Clinic) 7.1 H 04/10/21 04/10/21 04/10/21 07:47 07:47 07:47 Potassium 5.3 H Creatinine 1.05 Estimated GFR > 60 Hgb A1c (Clinic) Triglycerides 71 Cholesterol 102 LDL Cholesterol, C alc 58 HDL Cholesterol 30 Vitamin B12 578 25-OH Vitamin D To bryson 40.2 Microalb/Creat Rat io 04/10/21 04/10/21 07:47 09:12 Potassium Creatinine Estimated GFR Hgb A1c (Clinic) 7.1 H Triglycerides Cholesterol LDL Cholesterol, C alc HDL Cholesterol Vitamin B12 25-OH Vitamin D To bryson Microalb/Creat Rat io 7.0 04/18/20 04/18/20 04/18/20 10:45 10:48 10:48 Creatinine 0.94 Estimated GFR > 60 Hgb A1c (Clinic) Triglycerides 81 Cholesterol 100 LDL Cholesterol Di rect 54 LDL Cholesterol, C alc 55 HDL Cholesterol 29 Vitamin B12 Microalb/Creat Rat io 11.1 04/18/20 07/03/20 10:48 14:40 Creatinine Estimated GFR Hgb A1c (Clinic) 7.2 H Triglycerides Cholesterol LDL Cholesterol Di rect LDL Cholesterol, C alc HDL Cholesterol Vitamin B12 168 L Microalb/Creat Rat io PFSH Medical History (Updated 01/30/22 @ 10:27 by Devan Banerjee MD) Obesity due to excess calories Screening for prostate cancer B12 deficiency Diabetes mellitus Preop exam for internal medicine Morbid obesity Vitamin D deficiency Hypertension Dyslipidemia Diabetic nephropathy associated with type 2 diabetes mellitus Diabetic polyneuropathy associated with type 2 diabetes mellitus superintendent terminal (current) use of insulin Diabetes type 2, uncontrolled Surgical History History of cataract surgery History of nasal surgery Family History Father Medical history unknown Mother Medical history unknown Sister No problems noted. Sister No problems noted. Family/Other Diabetes Social History Housing: House Alcohol intake: never Patient Tobacco Use Status: Never used Tobacco e-Cigarette/Vaping Use: Never Used Second Hand Smoke Exposure: No service: No Current occupational status: disabled Cognitive needs: No Hearing needs: Yes Vision needs: Yes Physical Exam Vital Signs: Last Vital Signs Pulse 96 12/31/22 13:51 BP 110/62 12/31/22 13:51 BMI result Body Mass Index 42.6 Absence of Cushingoid features. Absence of acromegalic features. Neck exam reveals nl size thyroid about 15 gms. No thyroid nodules palpable. No carotid bruits present. Lungs CTA. Heart S1 S2, Reg R/R. No M/R/ G. Skin exam reveals absence of vitiligo or acanthosis nigricans. Abdominal exam reveals Soft NT/ND with NA BS. No organomegaly present. Neck Other: . Extrem Other: Visual exam of foot performed. there is a right 2nd and 3rd toe amputation.No ulcerations or open lesions. No onchomycosis, no callouses.Pulses 2 + distally Sensation Decreased to monofilament exam. Vibratory sensation sensed is decreased with 128 Hz tuning fork Results Reviewed Results Reviewed: 12/31/22 14:06 Glucose, Whole Blood Routine Laboratory Last Values Glucose (Clinic) 125 mg/dL (60-115) H 12/31/22 14:06 Assessment & Plan Assessment & Plan (1) Diabetes type 2, uncontrolled: Code(s): E11.65 - Type 2 diabetes mellitus with hyperglycemia Plan: This is a 61-year-old white male with a history of type 2 diabetes being treated with metformin, Victoza and basal-bolus insulin with excellent glycemic control and known microvascular and macrovascular complications namely neuropathy, CKD and Peripheral vascular disease with amputations on a 2nd and 3rd right toes . Plan is to continue the current regimen. At this point, patient can follow up with his primary care provider return back to endocrinology should his HbA1c deteriorate Coding Level of Care Code Est Pt Level 4 (67524) Diagnoses Diabetes type 2, uncontrolled E11.65
== END 2022-12-31 14:19 | disposition home or self-care (01) ==
PROVIDERS: PCP Internal Medicine; Visit Provider Internal Medicine Endocrinology, Diabetes & Metabolism
DX: E11.69 Type 2 diabetes mellitus with other specified complication (principal); E66.01 Morbid (severe) obesity due to excess calories; E11.65 Type 2 diabetes mellitus with hyperglycemia
CPT/HCPCS: 99214

== ENCOUNTER → 2022-12-31 13:47 | Outpatient (BNVA) | payer MEDICARE, MEDICAID, SELFPAY | PROVIDERS: Visit Provider Internal Medicine Endocrinology, Diabetes & Metabolism | DX: E11.65 Type 2 diabetes mellitus with hyperglycemia (principal) | CPT/HCPCS: 82947; 83036; 99212 ==

== ENCOUNTER 2023-02-10 13:38 | Outpatient (AMB) | payer MEDICARE, MEDICAID, SELFPAY ==
[2023-02-10 13:47] VITALS: BP 110/60; PULSE 70; O2SAT 99; BMI 41.7
--- NOTE | 2023-02-10 13:47 | AM.OFFVISMDC ---
Intake Vital Signs 02/10/23 13:47 Height 5 ft 10 in Weight 291 lb BMI 41.7 BP 110/60 Blood Pressure Location Lt brachial Position Sitting Pulse 70 Pulse Source Pulse Oximeter Pulse Oximetry (%) 99 Oxygen Delivery Method Room Air Intake Visit Reasons: AWV Lumber Material Handler Required: No Accompanied by: Self / Same As Patient Allergies No Known Allergies Allergy (Verified 02/10/23 13:48) Medication List - Last Reconciled 02/11/23 by Devan Banereje MD atorvastatin 40 mg PO DAILY 90 days blood sugar diagnostic (Accu-Chek SmartView Test Strips) 3x Daily dorzolamide-timolol 22.3-6.8 mg/mL 1 drp ophthalmic (eye) BID flash glucose scanning reader (YellowPepperStyle Gabbie 2 [place]) As directed flash glucose sensor (FreeStyle Gabbie 2 Sensor kit) As directed every 2 weeks insulin aspart U-100 (Novolog FlexPen U-100 Insulin aspart) 6 - 8 units (0.06 - 0.08 mL) subcut TID 30 days insulin degludec (Tresiba FlexTouch U-200 insulin) 18 units subcut BEDTIME lancets (FreeStyle Lancets) 3 times a day liraglutide (Victoza 3-Adalid) 1.8 mg (0.3 mL) subcut Q24H 90 days lisinopril 40 mg PO DAILY metformin 1,000 mg PO BID pen needle, diabetic 4 times a day HPI AWV HPI Details DM hyperlipidemia and HTN; cognitive delay PFSH Medical History Obesity due to excess calories Screening for prostate cancer B12 deficiency Diabetes mellitus Preop exam for internal medicine Morbid obesity Vitamin D deficiency Hypertension Dyslipidemia Diabetic nephropathy associated with type 2 diabetes mellitus Diabetic polyneuropathy associated with type 2 diabetes mellitus snf (current) use of insulin Diabetes type 2, uncontrolled Surgical History History of cataract surgery History of nasal surgery Family History Father Medical history unknown Mother Medical history unknown Sister No problems noted. Sister No problems noted. Family/Other Diabetes Housing: House Alcohol intake: never Patient Tobacco Use Status: Never used Tobacco e-Cigarette/Vaping Use: Never Used Second Hand Smoke Exposure: No service: No Current occupational status: disabled Cognitive needs: No Hearing needs: Yes Vision needs: Yes Questionnaire Medicare Wellness Checkup What gender do you identify with?: male During the past 4 weeks, how much have you been bothered by emotional problems such as feeling anxious, depressed, irritable, sad or downhearted, and blue?: not at all During the past 4 weeks, has your physical & emotional health limited your social activities with family, friends, neighbors, or groups?: not at all During the past 4 weeks, how much bodily pain have you generally had?: no pain During the past 4 weeks, was someone available to help you if you needed & wanted help?: yes, as much as I wanted During the past 4 weeks, what was the hardest physical activity you could do for at least 2 minutes?: moderate Can you get to places out of walking distance without help? (For eg., can you travel alone on buses, taxis or drive your car?): Yes Can you go shopping for groceries or clothes without someone's help?: Yes Can you prepare your own meals?: No Can you do your housework without help?: Yes Because of any health problems, do you need the help of another person with your personal care needs such as eating, bathing, dressing or getting around the house?: No Can you handle your own money without help?: Yes During the past 4 weeks, how would you rate your health in general?: very good During the past 4 weeks how have things been going for you?: pretty well Are you having difficulties driving your car?: no Do you always fasten your seat belt when you are in a car?: yes, usually During past 4 weeks, have you been bothered by the following: never: Falling or dizzy when standing up, Sexual problems?, Trouble eating well?, Teeth or denture problems?, Problems using the telephone? and Tiredness or fatigue? Have you fallen 2 or more times in the past year?: No Are you afraid of falling?: No Are you a smoker?: no During the past 4 weeks, how many drinks of wine, beer, or other alcoholic beverages did you have?: no alcohol at all Do you exercise for about 20 minutes 3 or more times a week?: no, I usually do not exercise this much Have you been given information to help with the following?: yes: Hazards in your house that might hurt you? and yes: Keeping track of your medications? How often do you have trouble taking medicines the way you have been told to take them?: I always take medicine as prescribed How confident are you that you can control & manage most of your health problems?: somewhat confident What is your race?: White Mini Mental State Exam (MMSE) Orientation What is the (year) (season) (date) (day) (month)?: season Where are we (state) (county) (town or city) (hospital) (floor)?: state Registration Name of 3 unrelated objects clearly and slowly, then ask patient to repeat all 3 of them. (1st repeat determines score. Make sure they can repeat all three): object 1 Attention & Calculation (CHOOSE ONE) Spell WORLD backwards (DLROW): 0 letters Score Score: 3 Activity of Daily Living Bathing - sponge bath, tub bath or shower: receives no assistance (gets in/out by self, if usual bathing means Dressing - getting clothes from closets & drawers, including inner/outer garments & fasteners.: gets clothes & gets completely dressed without help Toileting - going to the 'toilet room' for urine/bowel elimination & cleaning self/arranging clothes: goes to toilet room, cleans self, arranges clothes without help Transfer: moves in & out of bed and chair without help (may use support object) Continence: controls urination/bowel movements completely by self Feeding: feeds self without help Total Score: 0 Information obtained from: patient Using telephone: independent Traveling: dependent Shopping: dependent Preparing meals: needs assistance Housework: needs assistance Taking medicine: needs assistance Managing money: dependent PHQ-9 Over the last 2 weeks, how often have you been bothered by any of the following problems? 1. Little interest or pleasure in doing things: not at all 2. Feeling down, depressed, or hopeless: not at all 3. Trouble falling or staying asleep, or sleeping too much: not at all 4. Feeling tired or having little energy: not at all 5. Poor appetite or overeating: not at all 6. Feeling bad about yourself - or that you are a failure or have let yourself or your family down: not at all 7. Trouble concentrating on things, such as reading the newspaper or watching television: not at all 8. Moving or speaking so slowly that other people could have noticed. Or the opposite - being so fidgety or restless that you have been moving around a lot more than usual: not at all 9. Thoughts that you would be better off or of hurting yourself in some way: not at all Total score: 0 Depression Screening Interpretation: Negative Depression Screening Done: Yes 41725 - PHQ-9 Billing: Yes Source: Developed by Drs. Fabiano Phan, Andree Virgen, Sy Liriano and colleagues, with an educational sunny from [employer]. Review of Systems Const Denies chills, Denies fatigue, Denies headache(s) and Denies weight loss Eyes Denies change in vision, Denies diplopia and Denies eye pain ENT Reports Normal hearing present, Denies vertigo, Denies dizziness, Denies headache(s) and Denies nasal discharge Card Denies chest pain, Denies rapid heart rate and Denies dyspnea on exertion Resp Denies chest congestion, Denies cough, Denies pain with cough and Denies dyspnea on exertion GI Denies abdominal pain, Denies hematochezia and Denies change in bowel habits Musc Denies myalgias, Denies arthralgias and Denies joint swelling Skin/Breast Denies lesions and Denies unusual bruising Neuro Reports Normal hearing present, Denies vertigo, Denies dizziness, Denies headache(s) and Denies focal weakness Endo Denies fatigue Physical Exam Vital Signs: Last Vital Signs Pulse 70 02/10/23 13:47 BP 110/60 02/10/23 13:47 Pulse Ox 99 02/10/23 13:47 Oxygen Delivery Method Room Air 02/10/23 13:47 BMI result Body Mass Index 41.7 Neuro Cranial nerves: Yes Normal hearing present Assessment & Plan Assessment & Plan (1) Encounter for initial annual wellness visit (AWV) in Medicare patient: Code(s): Z00.00 - Encounter for general adult medical examination without abnormal findings Plan: whisper and rhomberg tests nl (2) Type 2 diabetes mellitus with morbid obesity: Code(s): E11.69 - Type 2 diabetes mellitus with other specified complication; E66.01 - Morbid (severe) obesity due to excess calories Plan: same rx; A1C in good control (3) Hypertension: Code(s): I10 - Essential (primary) hypertension Plan: stable; same rx (4) Dyslipidemia: Code(s): E78.5 - Hyperlipidemia, unspecified Plan: stable; same rx Quality Reporting (2019) Depression/Bipolar (159/160/161/177) PHQ-9: Total score: 0 Coding Level of Care Code Medicare First (G0438) Diagnoses Encounter for initial annual wellness visit (AWV) in Medicare patient Z00.00 Type 2 diabetes mellitus with morbid obesity E11.69; E66.01 Hypertension I10 Dyslipidemia E78.5 CPT Codes Advance Care Planning - Advance Care Planning discussion: On file, no changes ([id number]) Advance Care Planning Advance Care Planning discussion: On file, no changes Forms completed: Health Care Proxy
== END 2023-02-10 14:02 | disposition home or self-care (01) ==
PROVIDERS: PCP Internal Medicine; Visit Provider Internal Medicine
DX: Z00.00 Encounter for general adult medical examination without abnormal findings (principal); E11.69 Type 2 diabetes mellitus with other specified complication; E66.01 Morbid (severe) obesity due to excess calories; Z68.41 Body mass index [BMI] 40.0-44.9, adult; I10 Essential (primary) hypertension; E78.5 Hyperlipidemia, unspecified
CPT/HCPCS: 1123F; G0438; G0439

== ENCOUNTER 2023-06-10 15:35 | Outpatient (REF) | payer MEDICARE, MEDICAID, SELFPAY ==
--- NOTE | 2023-06-10 16:40 | MHC.AU.HA3 ---
Hearing Instrument Follow-Up- Binaural Date of Visit: 06/10/23 Right Ear: Miles Model, Color, Serial Number: [id number] [employer] Repair Warranty: 04/25/2024 [employer] Loss and Damage Warranty: 04/25/2024 [facility] Service Plan: Battery Size: Rechargeable Supervisor Wet Room/Slim Tube: Earmold/Dome/CShell/SlimTip:Ron Canal Lock [id number] remake warranty 02/11/2022 Type of Wax Guard: None Dispensed By: [facility] Date of Fittin02/09/2021 Left Ear: Miles, Model, Color, Serial Number: [id number] [employer] Rep[employer] Warranty: 04/25/2024 [employer] Loss and Damage Warranty: 04/25/2024 USED 06/07/2021 [facility] Service Plan: Battery Size: Rechargeable Supervisor Wet Room/Slim Tube: Earmold/Dome/CShell/SlimTip: Ron Canal Lock Type of Wax Guard: None Dispensed By: [facility] Date of Fittin02/09/2021 Follow-Up Summary: Here for evaluation. Reports right aid not working at all recently, has tried cleaning at home. Cleaned and checked both hearing aids, found stiff tubes with cerumen in them. Cleaned earmolds. Replaced tonehooks. Replaced tubing. Listening check positive. Recommendations: Recommendations: Hearing instrument maintenance in 6 months, or sooner if needed. Diagnosis Code(s): Primary Diagnosis: H90.6 Mixed Hearing Loss, Bilateral Signature: Provider: Ginny Blair, [facility]
== END 2023-06-10 15:36 | disposition home or self-care (01) ==
LOC: HO.SH 15:35
PROVIDERS: PCP Internal Medicine; Visit Provider Internal Medicine
DX: Z01.118 Encounter for examination of ears and hearing with other abnormal findings (principal); H90.6 Mixed conductive and sensorineural hearing loss, bilateral; Z46.1 Encounter for fitting and adjustment of hearing aid
CPT/HCPCS: 92557; 92567; 92593; 99499

== ENCOUNTER 2023-07-22 13:16 | Outpatient (AMB) | payer MEDICARE, MEDICAID, SELFPAY ==
[2023-07-22 13:18] VITALS: BP 120/72; PULSE 72; O2SAT 98; BMI 41.6
--- NOTE | 2023-07-22 13:18 | A.OFFPC_ITS ---
Vital Signs 07/22/23 13:18 Height 5 ft 10 in Weight 290 lb BMI 41.6 BP 120/72 Blood Pressure Location Lt brachial Position Sitting Pulse 72 Pulse Source Pulse Oximeter Pulse Oximetry (%) 98 Oxygen Delivery Method Room Air Intake Visit Reasons: DMII follow up Advertising Account Representative Required: No Inside Barrel Lathe Operator: Present Accompanied by: Spouse Allergies No Known Allergies Allergy (Verified 07/22/23 13:19) Medication List - Last Reconciled 07/23/23 by Devan Banerjee MD atorvastatin 40 mg PO DAILY 90 days blood sugar diagnostic (Accu-Chek SmartView Test Strips) 3x Daily dorzolamide-timolol 22.3-6.8 mg/mL 1 drp ophthalmic (eye) BID flash glucose scanning reader (MacawStyle Gabbie 2 [place]) As directed flash glucose sensor (FreeStyle Gabbie 2 Sensor kit) As directed every 2 weeks insulin degludec (Tresiba FlexTouch U-200 insulin) 18 units subcut BEDTIME lancets (FreeStyle Lancets) 3 times a day lisinopril 40 mg PO DAILY metformin 1,000 mg PO BID pen needle, diabetic 4 times a day semaglutide (Ozempic) 1 mg (0.75 mL) subcut QWEEK Tobacco use date assessed: 07/22/23 Dental Screening Dental Screen Date: 07/22/23 Did you have a dental visit in the last 12 months?: Yes Did you have a dental problem in the last 6 months where you did not have access to dental care?: No Was dental information given to patient?: Patient has dentist HPI DMII follow up HPI Details DM in poor control; Victoza not able to obtain at previous dose and Ozempic is not working; his blood glucose drops to below 60 numerous times a week; he requires ongoing use of his CGM [facility] Medical History Obesity due to excess calories Screening for prostate cancer B12 deficiency Diabetes mellitus Preop exam for internal medicine Morbid obesity Vitamin D deficiency Hypertension Dyslipidemia Diabetic nephropathy associated with type 2 diabetes mellitus Diabetic polyneuropathy associated with type 2 diabetes mellitus senior living (current) use of insulin Diabetes type 2, uncontrolled Surgical History History of cataract surgery History of nasal surgery Family History Father Medical history unknown Mother Medical history unknown Sister No problems noted. Sister No problems noted. Family/Other Diabetes Social History Housing: House Alcohol intake: never Patient Tobacco Use Status: Never used Tobacco e-Cigarette/Vaping Use: Never Used Second Hand Smoke Exposure: No service: No Current occupational status: disabled Cognitive needs: No Hearing needs: Yes Vision needs: Yes Questionnaire PHQ-9 Over the last 2 weeks, how often have you been bothered by any of the following problems? 1. Little interest or pleasure in doing things: not at all 2. Feeling down, depressed, or hopeless: not at all 3. Trouble falling or staying asleep, or sleeping too much: not at all 4. Feeling tired or having little energy: not at all 5. Poor appetite or overeating: not at all 6. Feeling bad about yourself - or that you are a failure or have let yourself or your family down: not at all 7. Trouble concentrating on things, such as reading the newspaper or watching television: not at all 8. Moving or speaking so slowly that other people could have noticed. Or the opposite - being so fidgety or restless that you have been moving around a lot more than usual: not at all 9. Thoughts that you would be better off or of hurting yourself in some way: not at all Total score: 0 Depression Screening Interpretation: Negative Depression Screening Done: Yes 31632 - PHQ-9 Billing: Yes Source: Developed by Drs. Fabiano Phan, Andree Virgen, Sy Liriano and colleagues, with an educational sunny from [employer]. Thrive Questionnaire Date Thrive assessed: 07/22/23 I am a: Patient What is your living situation today?: I have a steady place to live Within the past 12 months, did the food you bought not last and you didn't have the money to get more?: Never true Within the past 12 months, did you worry whether your food would run out before you got money to buy more?: Never true Do you have trouble paying for medicines?: No Do you have trouble getting transportation to medical appointments?: No Do you have trouble paying your heating and electricity bill?: No Do you have trouble taking care of your child, family member or friend?: No Do you have trouble with day-to-day activities such as bathing, preparing meals, shopping, managing finances, etc.?: No Are you currently unemployed and looking for a job?: No Are you interested in more education?: No Please select the resources that you would like help with: None THRIVE Score: 0 AUDIT C Alcohol Use Questionnaire (AUDIT-C) 1. How often do you have a drink containing alcohol?: Never 2. How many drinks containing alcohol do you have on a typical day when you are drinking?: 1 or 2 (none) 3. How often do you have six or more drinks on one occasion?: Never Total Score: 0 Score Reviewed/Action Taken: No MARY-7 AMB Questionnaire MARY-7 Date MARY - 7 assessed: 07/22/23 Feeling nervous, anxious, or on edge: 0 = Not at all Not being able to stop or control worryin = Not at all Worrying too much about different things: 0 = Not at all Trouble relaxin = Not at all Being so restless that it is hard to sit still: 0 = Not at all Becoming easily annoyed or irritable: 0 = Not at all Feeling afraid as if something awful might happen: 0 = Not at all Total MARY-7 score (0-4 normal; 5-9 mild; 10-14 moderate; 15-21 severe): 0 Source: Developed by Drs. Fabiano Phan, Andree Virgen, Sy Liriano and colleagues, with an educational sunny from [employer]. Review of Systems Const Denies chills, Denies headache(s) and Denies weight loss ENT Denies headache(s) Card Denies chest pain, Denies syncope, Denies irregular heart rhythm and Denies d yspnea Resp Denies chest congestion, Denies cough and Denies dyspnea GI Denies abdominal pain, Denies change in stool character, Denies nausea and Den ies vomiting Musc Denies deformity and Denies joint swelling Neuro Denies syncope and Denies headache(s) Physical exam (Primary Care) Vital Signs: Last Vital Signs Pulse 72 07/22/23 13:18 BP 120/72 07/22/23 13:18 Pulse Ox 98 07/22/23 13:18 Oxygen Delivery Method Room Air 07/22/23 13:18 BMI result Body Mass Index 41.6 Tobacco/Smoking Status: Tobacco use Status Tobacco use date assessed 07/22/23 07/22/23 13:20 Patient Tobacco Use Status Never used Tobacco 07/22/23 13:20 e-Cigarette/Vaping Use Never Used 07/22/23 13:20 PHQ-9: PHQ-9 Score PHQ-9: Total score 0 07/22/23 13:40 Depression Screening Interpretation: Negative Thrive Assessment: Date of Thrive Assessment Date Thrive assessed 07/22/23 07/22/23 13:20 Const General: cooperative, comfortable, no acute distress and alert Neck Neck: Yes no lymphadenopathy Thyroid: Thyroid normal Resp Effort & Inspection: normal respiratory effort Auscultation: clear to auscultation bilaterally Percussion: percussion normal Cardio Jugular venous distension: no JVD Palpation: normal PMI Rate: regular rate Rhythm: regular rhythm Heart sounds: S1 normal heart sound present and S2 normal heart sound present GI Inspection: Yes normal to inspection Palpation (GI): No hepatosplenomegaly present Skin General skin exam: no rashes or lesions noted Extrem General: Yes no clubbing, cyanosis or edema Assessment and Plan Assessment & Plan (1) Type 2 diabetes mellitus with morbid obesity: Code(s): E11.69 - Type 2 diabetes mellitus with other specified complication; E66.01 - Morbid (severe) obesity due to excess calories Plan: will change to different dose and refer to endo Orders: Referrals Endocrinology Referral E11.9 - Type 2 diabetes mellitus without complications Medications: New semaglutide (Ozempic) for 4 weeks 0.25 mg (0.368 mL) subcut QWEEK 3 mL 0RF Coding Level of Care Code Est Pt Level 3 (09637) Diagnoses Type 2 diabetes mellitus with morbid obesity E11.69; E66.01
== END 2023-07-22 14:53 | disposition home or self-care (01) ==
PROVIDERS: PCP Internal Medicine; Visit Provider Internal Medicine
DX: E11.69 Type 2 diabetes mellitus with other specified complication (principal); E66.01 Morbid (severe) obesity due to excess calories; Z68.41 Body mass index [BMI] 40.0-44.9, adult
CPT/HCPCS: 99213

== ENCOUNTER 2023-07-24 13:14 | Outpatient (AMB) | payer MEDICARE, MEDICAID, SELFPAY ==
[2023-07-24 13:31] VITALS: BP 124/70; PULSE 84; O2SAT 97; BMI 43.2
--- NOTE | 2023-07-24 13:31 | A.OFFPC_ITS ---
Vital Signs 07/24/23 13:31 Height 5 ft 10 in Weight 301 lb BMI 43.2 BP 124/70 Blood Pressure Location Lt brachial Position Sitting Pulse 84 Pulse Source Pulse Oximeter Pulse Oximetry (%) 97 Oxygen Delivery Method Room Air Intake Visit Reasons: on going lethargy and not feeling well Band Splitter Required: No Single Needle Tufting Machine Operator: Not Required per policy Accompanied by: Self / Same As Patient Allergies No Known Allergies Allergy (Verified 07/24/23 13:31) Tobacco use date assessed: 07/22/23 Dental Screening Dental Screen Date: 07/22/23 HPI on going lethargy and not feeling well HPI Details unable to tolerate the ozempic; low sugars and lethargy; rx has been stopped and BS improving PFSH Medical History Obesity due to excess calories Screening for prostate cancer B12 deficiency Diabetes mellitus Preop exam for internal medicine Morbid obesity Vitamin D deficiency Hypertension Dyslipidemia Diabetic nephropathy associated with type 2 diabetes mellitus Diabetic polyneuropathy associated with type 2 diabetes mellitus intermediate (current) use of insulin Diabetes type 2, uncontrolled Surgical History History of cataract surgery History of nasal surgery Family History Father Medical history unknown Mother Medical history unknown Sister No problems noted. Sister No problems noted. Family/Other Diabetes Social History Housing: House Alcohol intake: never Patient Tobacco Use Status: Never used Tobacco e-Cigarette/Vaping Use: Never Used Second Hand Smoke Exposure: No service: No Current occupational status: disabled Cognitive needs: No Hearing needs: Yes Vision needs: Yes Questionnaire Thrive Questionnaire Date Thrive assessed: 07/22/23 MARY-7 AMB Questionnaire MARY-7 Date MRAY - 7 assessed: 07/22/23 Source: Developed by Drs. Fabiano Phan, Andree Virgen, Sy Liriano and colleagues, with an educational sunny from [employer]. Review of Systems Const Denies chills, Denies headache(s) and Denies weight loss ENT Denies headache(s) Card Denies chest pain, Denies syncope, Denies irregular heart rhythm and Denies dyspnea Resp Denies chest congestion, Denies cough and Denies dyspnea GI Denies abdominal pain, Denies change in stool character, Denies nausea and Denies vomiting Musc Denies deformity and Denies joint swelling Neuro Denies syncope and Denies headache(s) Physical exam (Primary Care) Vital Signs: Last Vital Signs Pulse 84 07/24/23 13:31 BP 124/70 07/24/23 13:31 Pulse Ox 97 07/24/23 13:31 Oxygen Delivery Method Room Air 07/24/23 13:31 BMI result Body Mass Index 43.2 Tobacco/Smoking Status: Tobacco use Status Tobacco use date assessed 07/22/23 07/24/23 13:32 Patient Tobacco Use Status Never used Tobacco 07/24/23 13:32 e-Cigarette/Vaping Use Never Used 07/24/23 13:32 Thrive Assessment: Date of Thrive Assessment Date Thrive assessed 07/22/23 07/24/23 13:32 Const General: cooperative, comfortable, no acute distress and alert Neck Neck: Yes no lymphadenopathy Thyroid: Thyroid normal Resp Effort & Inspection: normal respiratory effort Auscultation: clear to auscultation bilaterally Percussion: percussion normal Cardio Jugular venous distension: no JVD Palpation: normal PMI Rate: regular rate Rhythm: regular rhythm Heart sounds: S1 normal heart sound present and S2 normal heart sound present GI Inspection: Yes normal to inspection Palpation (GI): No hepatosplenomegaly present Skin General skin exam: no rashes or lesions noted Extrem General: Yes no clubbing, cyanosis or edema Assessment and Plan Assessment & Plan (1) Type 2 diabetes mellitus with morbid obesity: Code(s): E11.69 - Type 2 diabetes mellitus with other specified complication; E66.01 - Morbid (severe) obesity due to excess calories Plan: remain off Ozempic for now Orders: Orders Basic Metabolic Panel 07/24/23 Complete Blood Count Auto Diff 07/24/23 Z13.0 - Encounter for screening for diseases of the blood and blood-forming organs and certain disorders involving the immune mechanism CT head/brain wo IV con 07/24/23 R29.6 - Repeated falls Coding Level of Care Code Est Pt Level 3 (81853) Diagnoses Type 2 diabetes mellitus with morbid obesity E11.69; E66.01
== END 2023-07-24 15:43 | disposition home or self-care (01) ==
PROVIDERS: PCP Internal Medicine; Visit Provider Internal Medicine
DX: E11.69 Type 2 diabetes mellitus with other specified complication (principal); E66.01 Morbid (severe) obesity due to excess calories; Z68.41 Body mass index [BMI] 40.0-44.9, adult
CPT/HCPCS: 99213

== ENCOUNTER 2023-07-24 13:52 | Outpatient (REF) | payer MEDICARE, MEDICAID, SELFPAY ==
[2023-07-24 14:12] LABS: MANUAL DIFF FLAG NO
[2023-07-24 14:26] LABS: Basophils Percent Auto 0.2 % (0-2); Eosinophils Absolute Auto 0.1 X10*3/uL (0.0-0.4); Eosinophils Percent Auto 0.5 % (0-4); Hematocrit 36.2 % (42.0-52.0); Hemoglobin 11.8 g/dl (14.0-18.0); Imm Gran Abs Auto 0.11 X10*3/uL (0.00-0.03); Lymphocytes Absolute Auto 2.5 X10*3/uL (1.2-4.9); Lymphocytes Percent Auto 23.5 % (20-40); Mean Corpuscular HGB Conc 32.6 g/dl (31.0-36.0); Mean Corpuscular Hemoglobin 29.3 pg (27.0-33.0); Mean Corpuscular Volume 89.8 fL (80.0-98.0); Monocytes Absolute Auto 0.6 X10*3/uL (0.1-1.2); NRBC Pct Auto 0.2 /100WBC (0.0-0.2); Neutrophils Absolute Auto 7.4 x10*3/uL (2.0-8.3); Neutrophils Percent Auto 68.8 % (45-73); Red Blood Count 4.03 X10*6/uL (4.60-5.80); Red Cell Distribution Width 15.6 % (11.0-16.0); White Blood Count 10.7 X10*3/uL (4.8-10.8)
[2023-07-24 14:57] LABS: Anion Gap 13 (12-20); Blood Urea Nitrogen 30 mg/dL (9-16); Carbon Dioxide 24 mmol/L (22-29); Chloride 107 mmol/L (96-108); Estimated Glomerular Filt Rate > 60; Glucose Random 159 mg/dL (60-115); Potassium 5.7 mmol/L (3.3-5.1); Sodium 138 mmol/L (135-145)
[2023-07-24 15:27] LABS: Mean Platelet Volume 12.1 fL (9.4-12.4); Platelet Count 130 X10*3/uL (160-400)
== END 2023-07-24 13:53 | disposition home or self-care (01) ==
LOC: HO.LAB 13:52
PROVIDERS: PCP Internal Medicine; Visit Provider Internal Medicine
DX: Z13.0 Encounter for screening for diseases of the blood and blood-forming organs and certain disorders involving the immune mechanism (principal)
CPT/HCPCS: 36415; 80048; 85025

== ENCOUNTER 2023-09-08 12:39 | Outpatient (AMB) | payer MEDICARE, MEDICAID, SELFPAY ==
--- NOTE | 2023-09-08 13:00 | A.OFFVIS_ITS ---
Vital Signs 09/08/23 13:03 Height 5 ft 10 in Weight 298 lb 4.567 oz BMI 42.8 BP 92/58 L Blood Pressure Location Lt brachial Position Sitting Pulse 79 Pulse Source Pulse Oximeter Intake Visit Reasons: Type 2 DM/LVM Intake Note: Patient present today to follow up on Type 2 Diabetes Mellitus. Patient receives DME supplies through: [employer] Last Diabetic Eye exam: 08/28/2023 [facility] Last Podiatry Visit: Has an upcoming appointment next week Random Glucose: 192 mg/dl HgA1C: 7.5% In House Cra Required: No Accompanied by: Sister Allergies semaglutide [From Ozempic] Adverse Reaction (Unknown, Verified 09/08/23 13:10) Hypoglycemia, not feeling well Medication List - Last Reconciled 09/08/23 by Gita Villar PA-C atorvastatin 40 mg PO DAILY 90 days blood sugar diagnostic (Accu-Chek SmartView Test Strips) 3x Daily dorzolamide-timolol 22.3-6.8 mg/mL 1 drp ophthalmic (eye) BID flash glucose scanning reader (FreeStyle Gabbie 2 [place]) As directed flash glucose sensor (FreeStyle Gabbie 2 Sensor kit) As directed every 2 weeks insulin degludec (Tresiba FlexTouch U-200 insulin) 10 units (0.05 mL) subcut BEDTIME 90 days lancets (FreeStyle Lancets) 3 times a day lisinopril 40 mg PO DAILY metformin 1,000 mg PO BID pen needle, diabetic 4 times a day HPI HPI Type 2 DM/LVM: Details: Patient is a 63-year-old male with DM type 2 diagnosed in his 20s who presents for management of diabetes. He is accompanied today by his sister who is also his primary caregiver. Past medical history: Hypertension, hyperlipidemia Developmental delay, vitamin-D deficiency, morbid obesity. He lives with sister, Delia. Micro and macrovascular complications: Nephropathy, neuropathy Peripheral vascular disease with amputations on a 2nd and 3rd right toes Diabetes medications: He is currently on metformin 1000 mg twice a day. She states that in July she started to notice that his blood sugars were really dropping and that he was not feeling good with the Ozempic. She had called in and they decided to stop the Ozempic and then discontinue the Tresiba because he was still getting low blood sugar readings. She states that she was told to follow back up once the blood sugars started to increase again. He has been consistent with the metformin feeling well. His energy is almost back to baseline. They are concerned however because his blood sugars are elevated. -he did have labs completed by his PCP in July when he was feeling unwell. Potassium was elevated, mild anemia and thrombocytopenia on the CBC. Patient states he does have an appointment in September to further go over his labs with his PCP. He did not have his potassium rechecked. He is on lisinopril. He states that his blood pressures have been fine at home and at the doctor's office. He has never had issues before with his potassium and states around that time he was not feeling well from the Ozempic. He had some GI symptoms, fatigue and lack of appetite. Blood glucose monitoring: Gabbie download shows he is using CGMS 72% of the time average glucose is 197 with variability of 22.1%. 44% in target range with 42% hyperglycemia and 14% very hyperglycemic. Hypoglycemia: None -they would like to restart the Tresiba. She states that they do not want to try any other injectables. He has tried Victoza in the past and tolerated this well the insurance no longer covered. She states that Trulicity was not while the available so she did not want to start this medication and she is worried he will have the same side effects with this and mounjaro. She states that he is a night owl in eats all night and likes to stay up on Facebook. She states he was the past controlled while he was on metformin and Tresiba. Exercise: walks down long driveway. Sometimes goes walking dogs. 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 He is asymptomatic with this. States that he feels fine. He has not drank much in terms of fluids today. He is on lisinopril 40 mg. Last labs show an elevated potassium. Has not yet had this repeated. His cholesterol is controlled with atorvastatin 40 mg. 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 Sister No problems noted. Family/Other Diabetes Social History Housing: House Alcohol intake: never Patient Tobacco Use Status: Never used Tobacco e-Cigarette/Vaping Use: Never Used Second Hand Smoke Exposure: No service: No Current occupational status: disabled Cognitive needs: No Hearing needs: Yes Vision needs: Yes Physical Exam Vital Signs: Last Vital Signs Pulse 79 09/08/23 13:03 BP 92/58 L 09/08/23 13:03 BMI result Body Mass Index 42.8 Const Orientation/consciousness: patient oriented x3 Neck Neck: Yes no lymphadenopathy Thyroid: Thyroid normal Carotids: no bruits Resp Auscultation: clear to auscultation bilaterally Cardio Rate: regular rate Rhythm: regular rhythm Heart sounds: S1 normal heart sound present and S2 normal heart sound present Neuro General: patient oriented x3 Extrem Other: Skin intact. Range of motion. Right partial toe amputations noted. Onychomycosis (being treated with Podiatry) noted. Results AMB Hemoglobin A1c AMB Hemoglobin A1c 7.5 % Last Edit by TYRELL Louise on 09/08/23 13:23 Results Reviewed Results Reviewed: Laboratory Last Values Glucose (Clinic) 192 mg/dL (60-115) H 09/08/23 13:14 Laboratory Tests 07/01/22 12/27/22 12/31/22 10:29 10:10 14:19 Sodium Potassium Chloride Carbon Dioxide Creatinine Estimated GFR Random Glucose Hgb A1c (Clinic) 6.8 H Calcium Triglycerides 86 Cholesterol 117 LDL Cholesterol, Calc 70 HDL Cholesterol 30 L Urine Creatinine 197.60 Urine Microalbumin 19.0 Microalb/Creat Ratio 9.6 07/24/23 14:11 Sodium 138 Potassium 5.7 H Chloride 107 Carbon Dioxide 24 Creatinine 1.12 Estimated GFR > 60 Random Glucose 159 H Hgb A1c (Clinic) Calcium 10.0 D Triglycerides Cholesterol LDL Cholesterol, Calc HDL Cholesterol Urine Creatinine Urine Microalbumin Microalb/Creat Ratio Assessment & Plan Assessment & Plan (1) Diabetic nephropathy associated with type 2 diabetes mellitus: Code(s): E11.21 - Type 2 diabetes mellitus with diabetic nephropathy Category: Medical Plan: On ARMANDO-inhibitor. Overdue for urine. Order today. 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 (3) Diabetes type 2, uncontrolled: Code(s): E11.65 - Type 2 diabetes mellitus with hyperglycemia Category: Medical Qualifiers: Glycemic state: with hyperglycemia Qualified Code(s): E11.65 - Type 2 diabetes mellitus with hyperglycemia Plan: A1c today is 7.5. Will restart insulin as they do not want to try anything else. (4) Hypertension: Code(s): I10 - Essential (primary) hypertension Category: Medical Qualifiers: Hypertension type: primary hypertension Qualified Code(s): I10 - Essential (primary) hypertension Plan: Discussed that blood pressure is on the lower side today. Reports that hydrated. Will recheck at home. Asymptomatic. Has an upcoming appointment PCP. (5) Serum potassium elevated: Code(s): E87.5 - Hyperkalemia Category: Medical Plan: BMP ordered today. Orders: Orders Basic Metabolic Panel Today E11.21 - Type 2 diabetes mellitus with diabetic nephropathy, E11.65 - Type 2 diabetes mellitus with hyperglycemia, I10 - Essential (primary) hypertension, Z79.4 - senior living (current) use of insulin AMB Hemoglobin A1c Today E11.69 - Type 2 diabetes mellitus with other specified complication, E66.01 - Morbid (severe) obesity due to excess calories Microalbumin, Random (w Creat) Today E11.21 - Type 2 diabetes mellitus with diabetic nephropathy, E11.65 - Type 2 diabetes mellitus with hyperglycemia, I10 - Essential (primary) hypertension, Z79.4 - senior living (current) use of insulin Medications: Changed From insulin degludec (Tresiba FlexTouch U-200 insulin) 18 units subcut BEDTIME To insulin degludec (Tresiba FlexTouch U-200 insulin) 10 units (0.05 mL) subcut BEDTIME 90 days 4.5 mL 1RF Coding Level of Care Code Est Pt Level 4 (32107) Complex EM visit Add On G2211 Diagnoses Diabetic nephropathy associated with type 2 diabetes mellitus E11.21 senior living (current) use of insulin Z79.4 Uncontrolled type 2 diabetes mellitus with hyperglycemia E11.65 Glycemic state: with hyperglycemia Primary hypertension I10 Hypertension type: primary hypertension Serum potassium elevated E87.5
[2023-09-08 13:03] VITALS: BP 92/58; PULSE 79; BMI 42.8
[2023-09-08 13:18] LABS: Glucose, Whole Blood 192 mg/dL (60-115)
== END 2023-09-08 13:39 | disposition home or self-care (01) ==
PROVIDERS: PCP Internal Medicine; Visit Provider Physician Assistant
DX: E11.21 Type 2 diabetes mellitus with diabetic nephropathy (principal); Z79.4 Long term (current) use of insulin; E11.65 Type 2 diabetes mellitus with hyperglycemia; I10 Essential (primary) hypertension; E87.5 Hyperkalemia; E11.69 Type 2 diabetes mellitus with other specified complication; E66.01 Morbid (severe) obesity due to excess calories
CPT/HCPCS: 99214; G2211

== ENCOUNTER 2023-09-08 12:39 | Outpatient (REF) | payer MEDICARE, MEDICAID, SELFPAY ==
[2023-09-08 15:17] LABS: Anion Gap 16 (12-20); Blood Urea Nitrogen 21 mg/dL (9-16); Calcium 9.5 mg/dL (8.4-10.2); Carbon Dioxide 23 mmol/L (22-29); Chloride 109 mmol/L (96-108); Estimated Glomerular Filt Rate > 60; Glucose Random 203 mg/dL (60-115); Potassium 4.7 mmol/L (3.3-5.1); Sodium 143 mmol/L (135-145)
[2023-09-08 17:21] LABS: Creatinine Urine 223.32 mg/dL; Microalbum/Creatinine Ratio Ur 4.9 ug/mg cr (<30)
== END 2023-09-08 12:40 | disposition home or self-care (01) ==
LOC: HO.LAB 12:39
PROVIDERS: PCP Internal Medicine; Visit Provider Physician Assistant
DX: I10 Essential (primary) hypertension (principal); E11.69 Type 2 diabetes mellitus with other specified complication; E66.01 Morbid (severe) obesity due to excess calories; E11.21 Type 2 diabetes mellitus with diabetic nephropathy; Z79.4 Long term (current) use of insulin
CPT/HCPCS: 36415; 80048; 82043; 82570; 82947; 83036; 99212

== ENCOUNTER 2023-12-08 13:17 | Outpatient (AMB) | payer MEDICARE, MEDICAID, SELFPAY ==
--- NOTE | 2023-12-08 13:18 | A.OFFVIS_ITS ---
Vital Signs 12/08/23 13:23 Height 5 ft 10 in Weight 293 lb 3.437 oz BMI 42.1 BP 112/60 Blood Pressure Location Rt brachial Position Sitting Pulse 85 Pulse Source Pulse Oximeter Intake Visit Reasons: T2DM/LVM Intake Note: Patient presents today for a follow-up on Type 2 Diabetes Mellitus: Patient receives DME supplies through: [employer] Last Diabetic Eye exam: 08/28/2023 [facility] Last Podiatry Visit: 09/2023 Most recent HbA1c: 8.6%, 12/08/2023 Random Glucose- 209 mg/dL, Today Licensed Physical Therapy Assistant Required: No Accompanied by: Self / Same As Patient Allergies semaglutide [From Ozempic] Adverse Reaction (Unknown, Verified 09/08/23 13:10) Hypoglycemia, not feeling well Medication List - Last Reconciled 12/08/23 by Gita Villar PA-C atorvastatin 40 mg PO DAILY blood sugar diagnostic (Accu-Chek SmartView Test Strips) 3x Daily dorzolamide-timolol 22.3-6.8 mg/mL 1 drp ophthalmic (eye) BID flash glucose scanning reader (FreeStyle Gabbie 2 [place]) As directed flash glucose sensor (FreeStyle Gabbie 2 Sensor kit) As directed every 2 weeks insulin degludec (Tresiba FlexTouch U-200 insulin) 10 units (0.05 mL) subcut BEDTIME 90 days lancets (FreeStyle Lancets) 3 times a day lisinopril 40 mg PO DAILY metformin 1,000 mg PO BID pen needle, diabetic 4 times a day HPI HPI T2DM/LVM: Details: Patient is a 63-year-old male with DM type 2 diagnosed in his 20s who presents for management of diabetes. He is accompanied today by his sister who is also his primary caregiver. Past medical history: Hypertension, hyperlipidemia Developmental delay, vitamin -D deficiency, morbid obesity. He lives with sister, Delia. Endo: DM-his A1c is 8.5. His last A1c was 7.5. He is currently on metformin 1000 mg twice a day and Tresiba 10 units at bedtime. -he did not tolerate Ozempic, Victoza was no longer covered by insurance and Trulicity was frequently out of stock Micro and macrovascular complications: Nephropathy, neuropathy Peripheral vascular disease with amputations on a 2nd and 3rd right toes. Blood glucose monitoring: Gabbie download shows he is using CGM 71% of the time average glucose is 175, GMI 7.5% with variability of 22.1%. 59% in target range with 33% hyperglycemia and 8% very hyperglycemic. Hypoglycemia: None, has glucose tabs Exercise: walks down long driveway. Sometimes goes walking dogs. 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 He is on lisinopril 40 mg. Hiis cholesterol is controlled with atorvastatin 40 mg. 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 Sister No problems noted. Family/Other Diabetes Social History Housing: House Alcohol intake: never Patient Tobacco Use Status: Never used Tobacco e-Cigarette/Vaping Use: Never Used Second Hand Smoke Exposure: No service: No Current occupational status: disabled Cognitive needs: No Hearing needs: Yes Vision needs: Yes Physical Exam Vital Signs: Last Vital Signs Pulse 85 12/08/23 13:23 BP 112/60 12/08/23 13:23 BMI result Body Mass Index 42.1 Const Orientation/consciousness: patient oriented x3 Neck Neck: Yes no lymphadenopathy Thyroid: Thyroid normal Carotids: no bruits Resp Auscultation: clear to auscultation bilaterally Cardio Rate: regular rate Rhythm: regular rhythm Heart sounds: S1 normal heart sound present and S2 normal heart sound present Neuro General: patient oriented x3 Extrem Other: Skin intact. Range of motion. Right partial toe amputations noted. Onychomycosis (being treated with Podiatry) noted. Results AMB Hemoglobin A1c AMB Hemoglobin A1c 8.6 % Last Edit by TYRELL Mckenna on 12/08/23 13:45 Results Reviewed Results Reviewed: Laboratory Last Values Glucose (Clinic) 204 mg/dL (60-115) H 12/08/23 13:27 Laboratory Tests 12/27/22 09/08/23 09/08/23 10:10 13:21 13:58 Sodium 143 Potassium 4.7 Chloride 109 H Carbon Dioxide 23 Anion Gap 16 BUN 21 H Estimated GFR > 60 Random Glucose 203 H Hgb A1c (Clinic) 7.5 H Calcium 9.5 Triglycerides 86 Cholesterol 117 LDL Cholesterol, Calc 70 HDL Cholesterol 30 L Urine Creatinine Urine Microalbumin Microalb/Creat Ratio 09/08/23 Unknown Sodium Potassium Chloride Carbon Dioxide Anion Gap BUN Estimated GFR Random Glucose Hgb A1c (Clinic) Calcium Triglycerides Cholesterol LDL Cholesterol, Calc HDL Cholesterol Urine Creatinine 223.32 Urine Microalbumin 11.0 Microalb/Creat Ratio 4.9 Assessment & Plan Assessment & Plan (1) Diabetic nephropathy associated with type 2 diabetes mellitus: Code(s): E11.21 - Type 2 diabetes mellitus with diabetic nephropathy Category: Medical Plan: We will start Trulicity. We discussed risks and benefits and adverse effects of this medication including nausea, vomiting, increased risk of pancreatitis. Continue with the Tresiba and metformin. Follow up in 3 months. Labs prior to appointment. Patient will follow up sooner if anything worsens or changes. Patient understands and agrees with this plan. (2) Hypertension: Code(s): I10 - Essential (primary) hypertension Category: Medical Qualifiers: Hypertension type: primary hypertension Qualified Code(s): I10 - Essential (primary) hypertension Plan: BP WNL. Continue current regimen (3) Dyslipidemia: Code(s): E78.5 - Hyperlipidemia, unspecified Category: Medical Plan: Well-controlled. Continue current regimen Orders: Orders Microalbumin, Random (w Creat) Today E11.21 - Type 2 diabetes mellitus with diabetic nephropathy, E78.5 - Hyperlipidemia, unspecified, I10 - Essential (primary) hypertension AMB Hemoglobin A1c Today E11.69 - Type 2 diabetes mellitus with other specified complication, E66.01 - Morbid (severe) obesity due to excess calories Comprehensive [place]. Panel Fast Today E11.21 - Type 2 diabetes mellitus with diabetic nephropathy, E78.5 - Hyperlipidemia, unspecified, I10 - Essential (primary) hypertension Hemoglobin A1c Today E11.21 - Type 2 diabetes mellitus with diabetic nephropathy, E78.5 - Hyperlipidemia, unspecified, I10 - Essential (primary) hypertension Medications: New dulaglutide (Trulicity) 0.75 mg (0.5 mL) subcut QWEEK 2 mL 3RF Coding Level of Care Code Est Pt Level 4 (59366) Complex EM visit Add On G2211 Diagnoses Diabetic nephropathy associated with type 2 diabetes mellitus E11.21 Primary hypertension I10 Hypertension type: primary hypertension Dyslipidemia E78.5
[2023-12-08 13:23] VITALS: BP 112/60; PULSE 85; BMI 42.1
[2023-12-08 13:31] LABS: Glucose, Whole Blood 204 mg/dL (60-115)
== END 2023-12-08 13:53 | disposition home or self-care (01) ==
PROVIDERS: PCP Internal Medicine; Visit Provider Physician Assistant
DX: E11.21 Type 2 diabetes mellitus with diabetic nephropathy (principal); I10 Essential (primary) hypertension; E78.5 Hyperlipidemia, unspecified; E11.69 Type 2 diabetes mellitus with other specified complication; E66.01 Morbid (severe) obesity due to excess calories
CPT/HCPCS: 99214; G2211

== ENCOUNTER → 2023-12-08 13:17 | Outpatient (BNVA) | payer MEDICARE, MEDICAID, SELFPAY | PROVIDERS: PCP Internal Medicine; Visit Provider Physician Assistant | DX: E11.21 Type 2 diabetes mellitus with diabetic nephropathy (principal); I10 Essential (primary) hypertension; E78.5 Hyperlipidemia, unspecified; Z79.85 Long-term (current) use of injectable non-insulin antidiabetic drugs | CPT/HCPCS: 82947; 83036; 99212 ==

== ENCOUNTER 2023-12-31 08:51 | Outpatient (REF) | payer MEDICARE, MEDICAID, SELFPAY ==
--- NOTE | 2023-12-31 10:03 | MHC.AU.HA3 ---
Hearing Instrument Follow-Up- Binaural Date of Visit: 12/31/23 Right Ear: Miles, Model, Color, Serial Number: [id number] Data Warehouse Manager Repair Warranty: 04/25/2024 Data Warehouse Manager Loss and Damage Warranty: 04/25/2024 [facility] Service Plan: Battery Size: Rechargeable Diamond Cleaver/Slim Tube: Earmold/Dome/CShell/SlimTip:Ron Canal Lock [id number] remake warranty 02/11/2022 Type of Wax Guard: None Dispensed By: [facility] Date of Fittin02/09/2021 Left Ear: Miles, Model, Color, Serial Number: [id number] Data Warehouse Manager Repair Warranty: 04/25/2024 Data Warehouse Manager Loss and Damage Warranty: 04/25/2024 USED 06/07/2021 [facility] Service Plan: Battery Size: Rechargeable Diamond Cleaver/Slim Tube: Earmold/Dome/CShell/SlimTip: Ron Canal Lock Type of Wax Guard: None Dispensed By: [facility] Date of Fittin02/09/2021 Follow-Up Summary: Patient here with sister for updated hearing evaluation. Left hearing aid is lost and is no longer under loss & damage warranty. Right hearing aid is in need of tubing change today. Hearing evaluation shows stable thresholds re: 06/14 evaluation. Right tubing has significant moisture and earmold is beginning to crack; replaced, cleaned earmold and microphone covers, listening check ok, patient reported improved sound quality. Patient has been happy with these hearing aids overall, will begin process for prior authorization for a replacement device for left ear and will order replacement earmold for right ear as it is beginning to crack. Recommendations: Recommendations: Patient will be contacted when materials have arrived. A prior authorization will be submitted to patient's insurance. Diagnosis Code(s): Primary Diagnosis: H90.6 Mixed Hearing Loss, Bilateral Secondary Diagnosis: H69.93 Unspecified Eustachian Tube Dysfunction, Bilateral Signature: Provider: Lynne Fuller, [facility]
--- NOTE | 2023-12-31 10:03 | MHC.AU.MED ---
Medical Clearance for Hearing Instrumentation Date: 12/31/23 Patient Name: Hoang Escobar Date of : 1960 Primary Care Provider: Referring Provider: Devan Banerjee MD We have seen your patient on 12/31/23 and have determined that they are a candidate for amplification (See accompanying report). Specifically, they would benefit from: Hearing aid use in both ears There is a statute that addresses Medical Evaluation Requirements prior to fitting a patient with a hearing aid. According to [place] statute 265 CMR:6.03(1), (a) General. Except as provided in 265 CMR 6.03(1)(b), a deodorizer operator shall not sell a hearing aid unless the prospective user has presented to the deodorizer operator a written statement signed by a licensed physician that states that the patient's hearing loss has been medically evaluated and the patient may be considered a candidate for a hearing aid. The medical evaluation must have taken place within the preceding six months. Please note: Due to the [place] Statute referenced above, we cannot accept a signature other than that of a licensed physician. TERRAZZO WORKER and PA signatures cannot be accepted. I am in agreement with the above recommendation. There is no medical contraindication for hearing instrumentation. Physician Signature Date Physician Name (Printed)
== END 2023-12-31 08:52 | disposition home or self-care (01) ==
LOC: HO.SH 08:51
PROVIDERS: Visit Provider Internal Medicine
DX: Z01.118 Encounter for examination of ears and hearing with other abnormal findings (principal); Z46.1 Encounter for fitting and adjustment of hearing aid; H90.6 Mixed conductive and sensorineural hearing loss, bilateral
CPT/HCPCS: 92552; 92556; 92592; 99499

== ENCOUNTER 2024-02-06 09:45 | Outpatient (REF) | payer MEDICARE, MEDICAID, SELFPAY ==
[2024-02-06 10:56] LABS: Estimated Average Glucose 183 mg/dL; Hemoglobin A1C 203.7423 umol/L; Total Hemoglobin (HGBA1C) 3209.7714 umol/L
[2024-02-06 11:03] LABS: Alanine Aminotransferase 31 U/L (0-40); Albumin Level 3.6 g/dL (3.5-5.0); Alkaline Phosphatase 139 U/L (39-117); Anion Gap 12 (12-20); Aspartate Amino Transferase 24 U/L (5-37); Bilirubin Total 0.4 mg/dL (0.0-1.0); Blood Urea Nitrogen 24 mg/dL (9-16); Calcium 9.6 mg/dL (8.4-10.2); Carbon Dioxide 25 mmol/L (22-29); Chloride 106 mmol/L (96-108); Estimated Glomerular Filt Rate > 60; Glucose Fasting 94 mg/dL (60-99); Potassium 4.5 mmol/L (3.3-5.1); Sodium 138 mmol/L (135-145)
[2024-02-06 12:27] LABS: Creatinine Urine 94.31 mg/dL; Microalbum/Creatinine Ratio Ur 8.4 ug/mg cr (<30)
== END 2024-02-06 09:46 | disposition home or self-care (01) ==
LOC: HO.LAB 09:45
PROVIDERS: PCP Internal Medicine; Visit Provider Physician Assistant
DX: Z00.00 Encounter for general adult medical examination without abnormal findings (principal); E11.69 Type 2 diabetes mellitus with other specified complication; E11.21 Type 2 diabetes mellitus with diabetic nephropathy; E66.01 Morbid (severe) obesity due to excess calories; E78.5 Hyperlipidemia, unspecified; I10 Essential (primary) hypertension
CPT/HCPCS: 36415; 80053; 82043; 82570; 83036; 96127; 99396

== ENCOUNTER 2024-02-06 10:33 | Outpatient (AMB) | payer MEDICARE, MEDICAID, SELFPAY ==
[2024-02-06 10:37] VITALS: BP 102/60; PULSE 72; O2SAT 94; BMI 41.7
--- NOTE | 2024-02-06 10:37 | A.OFFVIS_ITS ---
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 Accompanied by: Self / Same As Patient Allergies semaglutide [From Ozempic] Adverse Reaction (Unknown, Verified 02/06/24 10:38) Hypoglycemia, not feeling well Medication List - Last Reconciled 02/09/24 by Devan Banerjee MD atorvastatin 40 mg PO DAILY blood sugar diagnostic (Accu-Chek SmartView Test Strips) 3x Daily dorzolamide-timolol 22.3-6.8 mg/mL 1 drp ophthalmic (eye) BID dulaglutide (Trulicity) 0.75 mg (0.5 mL) subcut QWEEK flash glucose scanning reader (DatamarsStyle Gabbie 2 [place]) As directed flash glucose sensor (FreeStyle Gabbie 2 Sensor kit) As directed every 2 weeks insulin degludec (Tresiba FlexTouch U-200 insulin) 10 units (0.05 mL) subcut BEDTIME 90 days lancets (FreeStyle Lancets) 3 times a day lisinopril 40 mg PO DAILY metformin 1,000 mg PO BID pen needle, diabetic 4 times a day pen needle, diabetic (BD Ultra-Fine Ileana Pen Needle) Use daily as directed HPI Rsched from 02/15 -CPE HPI Details DM and hyperlipidemia on rx; ddoing well [facility] Medical History (Updated 12/08/23 @ 13:21 by Gita Villar PA-C) Obesity due to excess calories Screening for prostate cancer B12 deficiency Diabetes mellitus Preop exam for internal medicine Morbid obesity Vitamin D deficiency Hypertension Dyslipidemia Diabetic nephropathy associated with type 2 diabetes mellitus Diabetic polyneuropathy associated with type 2 diabetes mellitus 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 Sister No problems noted. Family/Other Diabetes Social History Housing: House Alcohol intake: never Patient Tobacco Use Status: Never used Tobacco e-Cigarette/Vaping Use: Never Used Second Hand Smoke Exposure: No service: No Current occupational status: disabled Cognitive needs: No Hearing needs: Yes Vision needs: Yes Questionnaire Medicare Wellness Checkup What gender do you identify with?: male During the past 4 weeks, how much have you been bothered by emotional problems such as feeling anxious, depressed, irritable, sad or downhearted, and blue?: not at all During the past 4 weeks, has your physical & emotional health limited your social activities with family, friends, neighbors, or groups?: not at all During the past 4 weeks, how much bodily pain have you generally had?: no pain During the past 4 weeks, was someone available to help you if you needed & wanted help?: yes, as much as I wanted During the past 4 weeks, what was the hardest physical activity you could do for at least 2 minutes?: moderate Can you get to places out of walking distance without help? (For eg., can you travel alone on buses, taxis or drive your car?): Yes Can you go shopping for groceries or clothes without someone's help?: Yes Can you prepare your own meals?: No Can you do your housework without help?: Yes Because of any health problems, do you need the help of another person with your personal care needs such as eating, bathing, dressing or getting around the house?: No Can you handle your own money without help?: No During the past 4 weeks, how would you rate your health in general?: very good During the past 4 weeks how have things been going for you?: pretty well Are you having difficulties driving your car?: no Do you always fasten your seat belt when you are in a car?: yes, usually During past 4 weeks, have you been bothered by the following: never: Falling or dizzy when standing up, Sexual problems?, Trouble eating well?, Teeth or denture problems?, Problems using the telephone? and Tiredness or fatigue? Have you fallen 2 or more times in the past year?: No Are you afraid of falling?: No Are you a smoker?: no During the past 4 weeks, how many drinks of wine, beer, or other alcoholic beverages did you have?: no alcohol at all Do you exercise for about 20 minutes 3 or more times a week?: yes, some of the time Have you been given information to help with the following?: yes: Hazards in your house that might hurt you? and yes: Keeping track of your medications? How often do you have trouble taking medicines the way you have been told to take them?: I always take medicine as prescribed How confident are you that you can control & manage most of your health problems?: somewhat confident What is your race?: White PHQ-9 Over the last 2 weeks, how often have you been bothered by any of the following problems? 1. Little interest or pleasure in doing things: not at all 2. Feeling down, depressed, or hopeless: not at all 3. Trouble falling or staying asleep, or sleeping too much: not at all 4. Feeling tired or having little energy: not at all 5. Poor appetite or overeating: not at all 6. Feeling bad about yourself - or that you are a failure or have let yourself or your family down: not at all 7. Trouble concentrating on things, such as reading the newspaper or watching television: not at all 8. Moving or speaking so slowly that other people could have noticed. Or the opposite - being so fidgety or restless that you have been moving around a lot more than usual: not at all 9. Thoughts that you would be better off or of hurting yourself in some way: not at all Total score: 0 Depression Screening Interpretation: Negative Depression Screening Done: Yes 77132 - PHQ-9 Billing: Yes Source: Developed by Drs. Fabiano Phan, Andree Virgen, Sy Liriano and colleagues, with an educational sunny from [employer]. Review of Systems Const Denies chills, Denies fatigue, Denies headache(s) and Denies weight loss Eyes Denies change in vision, Denies diplopia and Denies eye pain ENT Denies vertigo, Denies dizziness, Denies headache(s) and Denies nasal discharge Card Denies chest pain, Denies rapid heart rate and Denies dyspnea on exertion Resp Denies chest congestion, Denies cough, Denies pain with cough and Denies dyspnea on exertion GI Denies abdominal pain, Denies hematochezia and Denies change in bowel habits Musc Denies myalgias, Denies arthralgias and Denies joint swelling Skin/Breast Denies lesions and Denies unusual bruising Neuro Denies vertigo, Denies dizziness, Denies headache(s) and Denies focal weakness Endo Denies fatigue Physical Exam Vital Signs: Last Vital Signs Pulse 72 02/06/24 10:37 BP 102/60 02/06/24 10:37 Pulse Ox 94 02/06/24 10:37 Oxygen Delivery Method Room Air 02/06/24 10:37 BMI result Body Mass Index 41.7 Const General: cooperative, healthy appearing and no acute distress Orientation/consciousness: oriented to person, oriented to place and oriented to time HEENT Head: Yes normal to inspection, Yes normocephalic and Yes atraumatic Mouth: Normal oral and palatal mucosa present and tongue normal Throat: Yes posterior oropharynx normal and Yes uvula midline Eyes General: appearance normal, both eyes and all related structures Neck Neck: Yes normal visual inspection, Yes full ROM and Yes no lymphadenopathy Thyroid: Thyroid normal Carotids: normal carotid upstroke Chest Chest palpation & inspection: normal inspection of the chest Resp Effort & Inspection: normal respiratory effort and able to speak in complete sentences Auscultation: clear to auscultation bilaterally Cardio Jugular venous distension: no JVD Palpation: normal PMI Rate: regular rate Rhythm: regular rhythm Heart sounds: S1 normal heart sound present and S2 normal heart sound present GI Inspection: Yes normal to inspection Palpation (GI): Soft to palpation and No hepatosplenomegaly present Auscultation: normal bowel sounds General: Yes no CVA tenderness Back/Spine/Pelvis Back: no CVA tenderness Skin General skin exam: no rashes or lesions noted Neuro General: oriented to person, oriented to place and oriented to time Extrem General: Yes normal to inspection and Yes full ROM Assessment & Plan Assessment & Plan (1) Type 2 diabetes mellitus with morbid obesity: Code(s): E11.69 - Type 2 diabetes mellitus with other specified complication; E66.01 - Morbid (severe) obesity due to excess calories Plan: stable; same rx (2) Dyslipidemia: Code(s): E78.5 - Hyperlipidemia, unspecified Plan: stable; same rx (3) Physical exam: Code(s): Z00.00 - Encounter for general adult medical examination without abnormal findings Plan: do labs Quality Reporting (2019) Depression/Bipolar (159/160/161/177) PHQ-9: Total score: 0 Coding Level of Care Code Est Pt Level 5 (12387) Diagnoses Type 2 diabetes mellitus with morbid obesity E11.69; E66.01 Dyslipidemia E78.5 Physical exam Z00.00 Additional Codes PHQ-9 - 23512 - PHQ-9 Billing: Yes ([id number])
== END 2024-02-06 10:53 | disposition home or self-care (01) ==
PROVIDERS: PCP Internal Medicine; Visit Provider Internal Medicine
DX: Z00.00 Encounter for general adult medical examination without abnormal findings (principal); E11.69 Type 2 diabetes mellitus with other specified complication; E66.01 Morbid (severe) obesity due to excess calories; Z68.41 Body mass index [BMI] 40.0-44.9, adult; E78.5 Hyperlipidemia, unspecified

== ENCOUNTER 2024-03-22 13:58 | Outpatient (REF) | payer MEDICARE, MEDICAID, SELFPAY | END 2024-03-22 13:59 | disposition home or self-care (01) | LOC: HO.HAP 13:58 | PROVIDERS: Visit Provider Internal Medicine | DX: Z46.1 Encounter for fitting and adjustment of hearing aid (principal); H90.6 Mixed conductive and sensorineural hearing loss, bilateral | CPT/HCPCS: V5241; V5257; V5264 ==

== ENCOUNTER 2024-03-26 11:11 | Outpatient (AMB) | payer MEDICARE, MEDICAID, SELFPAY ==
[2024-03-26 11:17] VITALS: BP 98/64; PULSE 72; BMI 43.6
--- NOTE | 2024-03-26 11:17 | A.OFFVIS_ITS ---
Vital Signs 03/26/24 11:17 Height 5 ft 10 in Weight 304 lb 3.806 oz BMI 43.6 BP 98/64 Blood Pressure Location Rt brachial Position Sitting Pulse 72 Pulse Source Pulse Oximeter Intake Visit Reasons: T2DM/Left vm Intake Note: Patient presents today for a follow-up on Type 2 Diabetes Mellitus: Patient receives DME supplies through: [employer] Last Diabetic Eye exam: 08/28/2023 [facility] Last Podiatry Visit: 09/2023 Most recent HbA1c: 8.0%, 02/06/2024 Random Glucose- 100 mg/dL, Today Surg Rn Required: No Accompanied by: Sister Allergies semaglutide [From [facility]] Adverse Reaction (Unknown, Verified 03/26/24 11:18) Hypoglycemia, not feeling well Medication List - Last Reconciled 03/26/24 by Gita Villar PA-C atorvastatin 40 mg PO DAILY blood sugar diagnostic (Accu-Chek SmartView Test Strips) 3x Daily dorzolamide-timolol 22.3-6.8 mg/mL 1 drp ophthalmic (eye) BID dulaglutide (Trulicity) 0.75 mg (0.5 mL) subcut QWEEK flash glucose scanning reader (FreeStyle Gabbie 2 [place]) As directed flash glucose sensor (FreeStyle Gabbie 2 Sensor kit) As directed every 2 weeks lancets (FreeStyle Lancets) 3 times a day lisinopril 40 mg PO DAILY metformin 1,000 mg PO BID pen needle, diabetic 4 times a day pen needle, diabetic (BD Ultra-Fine Ileana Pen Needle) Use daily as directed HPI HPI T2DM/Left vm: Details: Patient is a 63-year-old male with DM type 2 diagnosed in his 20s who presents for management of diabetes. He is accompanied today by his sister who is also his primary caregiver. Past medical history: Hypertension, hyperlipidemia Developmental delay, vitamin-D deficiency, morbid obesity. He lives with sister, Delia. Endo: DM-his A1c is 8.5. His last A1c was 7.5. He is currently on metformin 1000 mg twice a day and Trulicity 0.75 mg. Over this last week I did stop his insulin due to multiple hypoglycemic events. Blood glucose monitoring: Gabbie download shows he is using CGM 82 % of the time average glucose is 106, GMI 5.8 % with variability of 22.1%. Eighty-three % in target range with 3% hyperglycemia and 15% hypoglycemic -he was hypoglycemic with the insulin on board. Since our last visit he was started on the Trulicity which has been helping improve his blood sugars. His appetite is about the same. No weight loss. -he did not tolerate Ozempic, Victoza was no longer covered by insurance. 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 Exercise: walks down long driveway. Sometimes goes walking dogs. 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 He is on lisinopril 40 mg. His cholesterol is controlled with atorvastatin 40 mg. 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 Sister No problems noted. Family/Other Diabetes Social History Housing: House Alcohol intake: never Patient Tobacco Use Status: Never used Tobacco e-Cigarette/Vaping Use: Never Used Second Hand Smoke Exposure: No service: No Current occupational status: disabled Cognitive needs: No Hearing needs: Yes Vision needs: Yes Physical Exam Vital Signs: Last Vital Signs Pulse 72 03/26/24 11:17 BP 98/64 03/26/24 11:17 BMI result Body Mass Index 43.6 Const Orientation/consciousness: patient oriented x3 HEENT Ears: hearing grossly normal bilaterally Neck Thyroid: Thyroid normal Lymphatic: no lymphadenopathy noted Resp Auscultation: clear to auscultation bilaterally Cardio Rate: regular rate Rhythm: regular rhythm Heart sounds: S1 normal heart sound present and S2 normal heart sound present Skin General skin exam: no rashes or lesions noted Neuro General: patient oriented x3, gait normal and no focal motor deficits Assessment & Plan Assessment & Plan (1) Diabetic nephropathy associated with type 2 diabetes mellitus: Code(s): E11.21 - Type 2 diabetes mellitus with diabetic nephropathy Category: Medical Plan: Continue with discontinuation of the Tresiba. No longer developing any hypoglycemia. Continue with the Trulicity 0.75 mg weekly and metformin 1000 mg twice a day. Labs ordered to be completed prior to next appointment. (2) Dyslipidemia: Code(s): E78.5 - Hyperlipidemia, unspecified Category: Medical Plan: Lipids and LFTs ordered continue atorvastatin (3) Hypertension: Code(s): I10 - Essential (primary) hypertension Category: Medical Qualifiers: Hypertension type: primary hypertension Qualified Code(s): I10 - Essential (primary) hypertension Plan: On the lower side today. Patient reports that he has not had much water because he woke up just before today's appointment. They will let me know when the visiting nurse comes on Friday with a blood pressure is. Orders: Orders B Type Natriuretic Peptide Today E11.21 - Type 2 diabetes mellitus with diabetic nephropathy, E78.5 - Hyperlipidemia, unspecified, I10 - Essential (primary) hypertension Comprehensive [place]. Panel Fast Today E11.21 - Type 2 diabetes mellitus with diabetic nephropathy, E78.5 - Hyperlipidemia, unspecified, I10 - Essential (primary) hypertension Hemoglobin A1c Today E11.21 - Type 2 diabetes mellitus with diabetic nephropathy, E78.5 - Hyperlipidemia, unspecified, I10 - Essential (primary) hypertension, R73.01 - Impaired fasting glucose Microalbumin, Random (w Creat) Today E11.21 - Type 2 diabetes mellitus with diabetic nephropathy, E78.5 - Hyperlipidemia, unspecified, I10 - Essential (primary) hypertension Lipid Panel Today E11.21 - Type 2 diabetes mellitus with diabetic nephropathy, E78.5 - Hyperlipidemia, unspecified, I10 - Essential (primary) hypertension Medications: Refilled dulaglutide (Trulicity) 0.75 mg (0.5 mL) subcut QWEEK 2 mL 11RF metformin 1,000 mg PO BID 180 tabs 2RF E11.21 - Type 2 diabetes mellitus with diabetic nephropathy Discontinued insulin degludec (Tresiba FlexTouch U-200 insulin) Discontinued Reason: Doctor's Order 10 units (0.05 mL) subcut BEDTIME 90 days 4.5 mL 1RF Coding Level of Care Code Est Pt Level 4 (57264) Complex EM visit Add On G2211 Diagnoses Diabetic nephropathy associated with type 2 diabetes mellitus E11.21 Dyslipidemia E78.5 Primary hypertension I10 Hypertension type: primary hypertension
[2024-03-26 11:26] LABS: Glucose, Whole Blood 100 mg/dL (60-115)
== END 2024-03-26 11:41 | disposition home or self-care (01) ==
PROVIDERS: PCP Internal Medicine; Visit Provider Physician Assistant
DX: E11.21 Type 2 diabetes mellitus with diabetic nephropathy (principal); E78.5 Hyperlipidemia, unspecified; I10 Essential (primary) hypertension